=== PATIENT | female | born 1935 | race Caucasian/White ===

== ENCOUNTER 2016-12-26 20:46 | Emergency (ER) | payer OTHER, MEDICAID ==
[2016-12-26 21:08] VITALS: BP 114/53; BMI 26.9
--- NOTE | 2016-12-26 21:55 | RAD ---
Indication: G-tube placement . Exam: KUB Technique: A supine view of the abdomen was obtained after 40 cc of Gastrografin was injected into t he patient's G-tube. Findings: There is a G-tube in place along the distal body of the stomach with contrast outlining th e gastric the colon extending into the proximal duodenum. There is no extravasation seen. The gas pa ttern is unremarkable. Impression: G-tube in good position with a nonspecific gas pattern. Reported By:
--- NOTE | 2016-12-26 21:58 | DR.GENAD ---
HPI - PCP Primary Care Physician: nickie - Complaint/Symptoms Chief Complaint:: pt here because her gtube has been pulled out - Source History Provided: EMS - Mode of Arrival Mode of Arrival: Stretcher - Timing Onset of Chief Complaint: 12/26/16 PMH - PMH Past Medical History: Yes Past Medical History: Alzheimers, Anxiety, CVA, Dementia, Diabetes, Hypertension , Hypothyroidism, Seizures Past Surgical History: Yes Surgical History: Hysterectomy - Family History History of Family Medical Conditions: Yes Family Medical History: Coronary Artery Disease - Social History Alcohol Use: None Do you use any recreational Drugs:: No Lives With: Other Lives Where: Assisted - infectious screening In the last 2 months have you had wt loss of >10#?: NO Have you had fever, night sweats or hemotysis?: No Have you traveled outside the country in the last 6 months?: No Isolation: Standard ROS - Review of Systems Unable to Obtain Due To: Dementia (pt does not open eyes) PE - Vital Signs Vitals: Temperature 97.2 F Pulse Rate 93 Respiratory Rate 20 Blood Pressure [Left Arm] 125/64 Blood Pressure [Right Arm] 131/58 Blood Pressure 114/53 O2 Sat by Pulse Oximetry 97 - Neck Neck Exam: Normal Inspection - Chest Chest Inspection: Normal Inspection - Respiratory Respiratory Exam: Normal Lung Sounds Bilat Respiratory Exam: Bilateral Clear to Auscultation - Cardiovascular Cardiovascular Exam: Regular Rate - Abdominal Exam Abdominal Exam: Normal Inspection, Soft Procedures - Additional Procedures Additional Procedures: gastric tube replacement - Diagnosis Discharge Problem: Attention to G-tube - Discharge Plan Disposition: 03 XFER SNF Condition: Stable - Follow ups/Referrals Follow ups/Referrals: PHAM BUNN [Primary Care Provider] - 3 days - Instructions Instructions: Care of a Feeding Tube, [id number]
== END 2016-12-26 22:02 | disposition home or self-care (01) ==
LOC: ER 20:46
PROC: 0D20XUZ Change Feeding Device in Upper Intestinal Tract, External Approach (ICD-10-PCS; principal; 2016-12-26)
DX: Z43.1 Encounter for attention to gastrostomy (principal)
CPT/HCPCS: 43760; 74000; 99282

== ENCOUNTER 2017-08-12 11:05 | Day surgery (SDC) | payer OTHER, MEDICAID ==
[~2017-08-12 11:05] MED LIST: D5 LR 1000 ML 1,000 ML IV ONE
[2017-08-12] MEDS ORDERED: DIPRIVAN VIAL 20 ML ONE (12:59)
[2017-08-12 14:36] VITALS: BP 121/65
[2017-08-12 16:15] LABS: STOOL FOR WBC NEGATIVE (NEGATIVE)
[2017-08-12 18:44] LABS: CRYPTOSPORIDIUM PARVUM ANTIGEN NEGATIVE (NEGATIVE); GIARDIA LAMBLIA ANTIGEN NEGATIVE (NEGATIVE)
== END 2017-08-12 14:00 | disposition home or self-care (01) ==
LOC: SURG1 11:05
PROVIDERS: ATTEND Internal Medicine
PROC: 0DBL8ZX Excision of Transverse Colon, Via Natural or Artificial Opening Endoscopic, Diagnostic (ICD-10-PCS; principal; 2017-08-12 12:15)
PROC: 0DBK8ZX Excision of Ascending Colon, Via Natural or Artificial Opening Endoscopic, Diagnostic (ICD-10-PCS; principal; 2017-08-12 12:15)
PROC: 0DJD8ZZ Inspection of Lower Intestinal Tract, Via Natural or Artificial Opening Endoscopic (ICD-10-PCS; principal; 2017-08-12 12:15)
DX: R19.7 Diarrhea, unspecified (principal); K64.0 First degree hemorrhoids; K57.30 Diverticulosis of large intestine without perforation or abscess without bleeding; K52.89 Other specified noninfective gastroenteritis and colitis; K63.5 Polyp of colon; D12.2 Benign neoplasm of ascending colon; K63.89 Other specified diseases of intestine
CPT/HCPCS: 82270; 83630; 87045; 87328; 87329; 87336; 87427; 87493; 87899; A4217; J3490; J7120

== ENCOUNTER → 2018-01-06 | Outpatient (CLI) | payer OTHER, MEDICAID ==
--- NOTE | 2018-01-06 14:49 | RAD ---
Indication: Arm pain Exam: Right humerus. Technique: AP and lateral views. Findings: There is a mildly displaced and slightly comminuted spiral fracture along the proximal diap hysis of the humerus . The humeral head remains well placed within the glenoid fossa. The distal shakir jermaine is intact. The bones are osteopenic. . There is a right Port-A-Cath in place. Impression: Mildly displaced and slightly comminuted spiral fracture along the proximal right humerus. Diffuse osteopenia. Reported By:
--- NOTE | 2018-01-06 14:51 | RAD ---
Indication: Shoulder pain Exam: Right shoulder series. Technique: AP and axillary views. Findings: There is a mildly displaced and slightly comminuted spiral fracture along the proximal diap hysis of the humerus extending into the surgical neck region proximally. The AC joint is intact . The bones are osteopenic. The humeral head remains well placed within the glenoid fossa. Impression: Mildly displaced and slightly comminuted spiral fracture of the proximal humerus. Mild hypertrophic changes of the AC joint. Osteopenia. Reported By:
== END | disposition home or self-care (01) ==
LOC: RAD 13:10
PROVIDERS: ATTEND Internal Medicine
DX: R29.898 Other symptoms and signs involving the musculoskeletal system (principal); M85.811 Other specified disorders of bone density and structure, right shoulder; S42.291A Other displaced fracture of upper end of right humerus, initial encounter for closed fracture; X58.XXXA Exposure to other specified factors, initial encounter
CPT/HCPCS: 73030; 73060

== ENCOUNTER 2018-06-05 18:51 | Inpatient (IN) ==
[~2018-06-05 18:51] MED LIST changes: -D5 LR 1000 ML 1,000 ML IV ONE; +TYLENOL SUPP 650 MG ONE
[2018-06-05] MEDS ORDERED: NS 1000 ML 1,000 ML ONE (20:01)
[2018-06-05 20:04] LABS: BILIRUBIN,URINE NEGATIVE (NEGATIVE); BLOOD/HEMOGLOBIN,URINE 4+ (NEGATIVE); GLUCOSE, URINE NEGATIVE (NEGATIVE); KETONES,URINE NEGATIVE (NEGATIVE); LEUKOCYTE ESTERASE ,URINE 3+ (NEGATIVE); NITRITES,URINE NEGATIVE (NEGATIVE); PROTEIN,URINE 3+ (NEGATIVE); UROBILINOGEN,URINE 1+ (NORMAL)
[2018-06-05 20:05] LABS: BASOPHILS % (AUTO) 0.3 % (0.2-1.0); EOSINOPHILS # (AUTO) 0.4 x10^3/uL (0.0-0.2); EOSINOPHILS % (AUTO) 2.5 % (0.9-2.9); HEMATOCRIT 28.7 % (36.0-47.0); HEMOGLOBIN 9.9 g/dL (12.0-16.0); LYMPHOCYTES # (AUTO) 0.2 X10^3/uL (1.3-2.9); LYMPHOCYTES % (AUTO) 1.4 % (21.0-51.0); MEAN CORPUSCULAR HEMOGLOBIN 34.3 pg (27.0-34.0); MEAN CORPUSCULAR HGB CONC 34.4 g/dL (33.0-35.0); MEAN CORPUSCULAR VOLUME 99.6 fL (80.0-100.0); MEAN PLATELET VOLUME 9.3 fL (7.4-11.0); MONOCYTES # (AUTO) 0.5 x10^3/uL (0.3-0.8); MONOCYTES % (AUTO) 2.8 % (0.0-13.0); NEUTROPHILS # (AUTO) 15.6 x10^3/uL (2.2-4.8); PLATELET COUNT 148 X10^3/uL (150.0-450.0); RED BLOOD COUNT 2.88 X10^6/uL (3.5-5.4); RED CELL DISTRIBUTION WIDTH 14.3 % (11.6-16.5); WHITE BLOOD COUNT 16.8 X10^3/uL (3.6-10.0)
[2018-06-05 20:05] LABS: APPEARANCE,URINE CLOUDY (CLEAR); COLOR,URINE STRAW (YELLOW)
[2018-06-05 20:12] LABS: BACTERIA,URINE 3+ /HPF (NEGATIVE); MUCUS,URINE FEW /HPF (NEGATIVE); SQUAMOUS EPITHELIAL CELL,UR MODERATE /HPF (NEGATIVE)
[2018-06-05] MEDS ORDERED: NS 1000 ML 1,000 ML IV ONE (20:12)
[2018-06-05 20:21] LABS: LACTIC ACID 2.6 mmol/L (0.4-2.0)
[2018-06-05 20:23] LABS: CALCIUM 8.3 mg/dL (8.5-10.1); CARBON DIOXIDE 19.6 mmol/L (21-32); CREATININE 3.45 mg/dL (0.55-1.02); TROPONIN I 0.82 ng/mL (0-1.5)
[2018-06-05 20:28] LABS: BAND NEUTROPHILS % 14 % (0-10)
[2018-06-05 20:29] LABS: PLATELET MORPHOLOGY COMMENT NORMAL (NORMAL)
[2018-06-05 20:38] LABS: ALBUMIN 2.3 g/dL (3.4-5.0); CKMB % 1.6 % (<4); COR CA(FOR HYPOALB) 9.7 mg/dL (8.5-10.1); CREATINE KINASE MB 2.2 ng/mL (0-4.0); TOTAL PROTEIN 6.9 g/dL (6.4-8.2)
[2018-06-05] MEDS ORDERED: ROCEPHIN VIAL 1 GRAM ONE (21:25)
--- NOTE | 2018-06-05 21:59 | RAD ---
Chest, one view Indication: Vomiting, fever Comparison: 06/05/2018 Findings: The heart is stable in size. The lungs are again hypoinflated but grossly clear. No signifi cant pleural effusion is identified. Right subclavian port catheter terminates over the cavoatrial ju nction without pneumothorax. Fracture of the proximal right humeral shaft again noted. Impression: No acute cardiopulmonary abnormality or significant interval change. Reported By:
[2018-06-05] MEDS ORDERED: ROCEPHIN VIAL 1 GRAM IVP SCH (22:01)
[2018-06-05] MEDS ORDERED: TOBRAMYCIN SULFATE 80 MG in NS 100 ML IV 100 ML IV SCH (22:01)
[2018-06-05] MEDS ORDERED: NS 1000 ML 1,000 ML IV SCH (22:01)
[2018-06-05] MEDS ORDERED: TOBRAMYCIN SULFATE ONE (22:09)
[2018-06-05] MEDS ORDERED: NS 100 ML IV 100 ML IV ONE (22:10)
[2018-06-05] MEDS: TYLENOL SUPP 650 MG PR PRN (23:08)
[2018-06-05 23:38] VITALS: BMI 33.3
[2018-06-06] MEDS ORDERED: MORPHINE SULFATE INJ 2 MG INJ IVP ONE (02:28)
[2018-06-06] MEDS: BUTT CREAM (COMPOUND) TOP PRN ×2 (02:39→20:30)
--- NOTE | 2018-06-06 03:11 | DR.FEVERAD ---
HPI PCP Primary Care Physician: SEPIDEH Complaints/Symptoms Chief Complaint:: VOMITING AND FEVER PT WAS IN THE HOSPITAL TUESDAY FOR SAME COMPLAINT PT WAS PLACED ON COMFORT MEASURES FAMILY HAS SINCE REVOKED THE COMFORT MEASURES Source History Provided: [facility] Mode of Arrival Mode of Arrival: Stretcher Timing Onset of Chief Complaint: 06/05/18 PMH PMH Past Surgical History: Yes Surgical History: Hysterectomy Family History History of Family Medical Conditions: Yes Family Medical History: Coronary Artery Disease Social History Does any household member use tobacco: No Alcohol Use: None Do you use any recreational Drugs:: No Lives With: Alone Lives Where: [facility] infectious screening In the last 2 months have you had wt loss of >10#?: YES Have you had fever, night sweats or hemotysis?: No Have you traveled outside the country in the last 6 months?: No Isolation: Standard PE Vital Signs Vitals: Temperature 100.6 F Pulse Rate [Left Radial] 113 Pulse Rate 130 Respiratory Rate 26 Blood Pressure [Left Arm] 85/45 Blood Pressure [Right Arm] 131/58 Blood Pressure 125/64 O2 Sat by Pulse Oximetry 96 General Limitations: No Limitations and Language Barrier; negative Altered Mental Status General Appearance: Alert and In No Apparent Distress; negative Appears Intoxicated, Lethargic and Obtunded Head Head Exam: Normal Inspection, Atraumatic and Normocephalic Eyes Eye exam: Normal Appearance, PERRL and EOMI; negative Conjunctival Injection ENT ENT Exam: Normal Exam, Normal Oropharynx and Normal External Ear Exam; negative Mucous Membranes Moist, Mucous Membranes Dry and TM's Normal Bilaterally External Ear Exam: negative Normal External Inspection, Auricular Hematoma, Auricular Trauma, Mastoid Tenderness, Pain with Movement and External Tenderness TM/Canal Exam: Bilateral: Normal Nose Exam: Normal Nose Exam; negative Sinus Tenderness, Nasal Deviation, Crepitus, Septal Hematoma and Laceration Nasal Speculum Exam: Bilateral: Normal Mouth Exam: Normal Inspection Respiratory Respiratory Exam: negative Prolonged Expiratory Phase, Respiratory Distress and Stridor Respiratory Exam: Bilateral: Clear to Auscultation Cardiovascular Cardiovascular Exam: Regular Rate and Normal Rhythm Abdominal Exam Abdominal Exam: Normal Inspection, Normal Bowel Sounds and Soft; negative Distention, Tenderness, Guarding, Hyperactive Bowel Sounds, Trauma, Incision and Ascites Abdominal Tenderness: negative RUQ, RLQ, LUQ, LLQ, Epigastrium and Suprapubic Extremities Extremities Exam: Normal Inspection and Full ROM; negative Tenderness and Edema Back Back Exam: Normal Inspection and Full ROM; negative Tenderness Neurologic Neurological Exam: Alert, Oriented X3, CN II-XII Intact, Normal Gait and Reflexes Normal Psychiatric Psychiatric Exam: Normal Affect Skin Skin Exam: Warm, Dry and Intact; negative Rash, Cyanosis, Diaphoresis and Erythema ROR Labs Reviewed Result Diagrams: 06/05/18 19:46 06/05/18 19:46 Laboratory: WBC 16.8 X10^3/uL (3.6-10.0) H 06/05/18 19:46 RBC 2.88 X10^6/uL (3.5-5.4) L 06/05/18 19:46 Hgb 9.9 g/dL (12.0-16.0) L 06/05/18 19:46 Hct 28.7 % (36.0-47.0) L 06/05/18 19:46 MCV 99.6 fL (80.0-100.0) 06/05/18 19:46 MCH 34.3 pg (27.0-34.0) H 06/05/18 19:46 MCHC 34.4 g/dL (33.0-35.0) 06/05/18 19:46 RDW 14.3 % (11.6-16.5) 06/05/18 19:46 Plt Count 148 X10^3/uL (150.0-450.0) L 06/05/18 19:46 Plt Count Comment Adequate (ADEQUATE) 06/05/18 19:46 MPV 9.3 fL (7.4-11.0) 06/05/18 19:46 Neut % (Auto) 93.0 % (42.0-75.0) H 06/05/18 19:46 Lymph % (Auto) 1.4 % (21.0-51.0) L 06/05/18 19:46 [place] % (Auto) 2.8 % (0.0-13.0) 06/05/18 19:46 Eos % (Auto) 2.5 % (0.9-2.9) 06/05/18 19:46 Baso % (Auto) 0.3 % (0.2-1.0) 06/05/18 19:46 Neut # (Auto) 15.6 x10^3/uL (2.2-4.8) H 06/05/18 19:46 Lymph # (Auto) 0.2 X10^3/uL (1.3-2.9) L 06/05/18 19:46 [place] # (Auto) 0.5 x10^3/uL (0.3-0.8) 06/05/18 19:46 Eos # (Auto) 0.4 x10^3/uL (0.0-0.2) H 06/05/18 19:46 Baso # (Auto) 0.0 X10^3/uL (0.0-0.1) 06/05/18 19:46 Absolute Nucleated RBC 0.0 /100WBC 06/05/18 19:46 Total Counted 100 06/05/18 19:46 Neutrophils % (Manual) 78 % (39-76) H 06/05/18 19:46 Band Neutrophils % 14 % (0-10) H 06/05/18 19:46 Lymphocytes % (Manual) 4 % (13-43) L 06/05/18 19:46 Monocytes % (Manual) 4 % (4-9) 06/05/18 19:46 Plt Morphology Comment Normal (NORMAL) 06/05/18 19:46 RBC Morphology Normal (NORMAL) 06/05/18 19:46 Sodium 132 mmol/L (136-145) L 06/05/18 19:46 Corrected Sodium 133 mmol/L (136-145) L 06/05/18 19:46 Potassium 4.9 mmol/L (3.5-5.1) 06/05/18 19:46 Chloride 99 mmol/L (98-107) 06/05/18 19:46 Carbon Dioxide 19.6 mmol/L (21-32) L 06/05/18 19:46 BUN 89 mg/dL (7-18) H 06/05/18 19:46 Creatinine 3.45 mg/dL (0.55-1.02) H 06/05/18 19:46 Est GFR (MDRD) Af Amer 16 (>60) L 06/05/18 19:46 Est GFR (MDRD) Non-Af 14 (>60) L 06/05/18 19:46 Glucose 126 mg/dL (65-99) H 06/05/18 19:46 Lactic Acid 2.6 mmol/L (0.4-2.0) H 06/05/18 19:46 Calcium 8.3 mg/dL (8.5-10.1) L 06/05/18 19:46 Corrected Calcium 9.7 mg/dL (8.5-10.1) 06/05/18 19:46 Total Bilirubin 0.80 mg/dL (0.2-1.0) 06/05/18 19:46 AST 68 Units/L (15-37) H 06/05/18 19:46 ALT 38 Units/L (12-78) 06/05/18 19:46 Alkaline Phosphatase 244 Units/L (46-116) H 06/05/18 19:46 Creatine Kinase 141 Units/L (26-192) 06/05/18 19:46 CK-MB (CK-2) 2.2 ng/mL (0-4.0) 06/05/18 19:46 CK/CKMB % Calc 1.6 % (<4) 06/05/18 19:46 Troponin I 0.82 ng/mL (0-1.5) 06/05/18 19:46 C-Reactive Protein 284.20 mg/L (0-3.0) H 06/05/18 19:46 B-Natriuretic Peptide 795 pg/mL (0-79) H* 06/05/18 19:46 Total Protein 6.9 g/dL (6.4-8.2) 06/05/18 19:46 Albumin 2.3 g/dL (3.4-5.0) L 06/05/18 19:46 Globulin 4.6 g/dL (2.5-4.5) H 06/05/18 19:46 Albumin/Globulin Ratio 0.5 Ratio (1.1-2.1) L 06/05/18 19:46 Specimen Type Catherized urine 06/05/18 19:39 Urine Color Straw (YELLOW) 06/05/18 19:39 Urine Appearance Cloudy (CLEAR) 06/05/18 19:39 Urine pH 7.0 (5.0 - 8.0) 06/05/18 19:39 Ur Specific [place] 1.010 (1.000-1.030) 06/05/18 19:39 Urine Protein 3+ (NEGATIVE) 06/05/18 19:39 Urine Glucose (UA) Negative (NEGATIVE) 06/05/18 19:39 Urine Ketones Negative (NEGATIVE) 06/05/18 19:39 Urine Occult Blood 4+ (NEGATIVE) 06/05/18 19:39 Urine Nitrite Negative (NEGATIVE) 06/05/18 19:39 Urine Bilirubin Negative (NEGATIVE) 06/05/18 19:39 Urine Urobilinogen 1+ (NORMAL) 06/05/18 19:39 Ur Leukocyte Esterase 3+ (NEGATIVE) 06/05/18 19:39 Urine RBC 5-10 /HPF (NONE SEEN) 06/05/18 19:39 Urine WBC Tntc /HPF (NONE SEEN) 06/05/18 19:39 Ur Squamous Epith Cells Moderate /HPF (NEGATIVE) 06/05/18 19:39 Urine Bacteria 3+ /HPF (NEGATIVE) 06/05/18 19:39 Urine Mucus Few /HPF (NEGATIVE) 06/05/18 19:39 Ur Culture Indicated? Yes/culture set up 06/05/18 19:39
[2018-06-06 03:32] LABS: BILIRUBIN,URINE NEGATIVE (NEGATIVE); BLOOD/HEMOGLOBIN,URINE 4+ (NEGATIVE); GLUCOSE, URINE NEGATIVE (NEGATIVE); KETONES,URINE NEGATIVE (NEGATIVE); LEUKOCYTE ESTERASE ,URINE 3+ (NEGATIVE); NITRITES,URINE NEGATIVE (NEGATIVE); PROTEIN,URINE 3+ (NEGATIVE); UROBILINOGEN,URINE 1+ (NORMAL)
[2018-06-06 03:54] LABS: AMORPHOUS SEDIMENT,UR 1+ /HPF (NEGATIVE); APPEARANCE,URINE CLOUDY (CLEAR); BACTERIA,URINE TRACE /HPF (NEGATIVE); COLOR,URINE YELLOW (YELLOW); RBC,URINE 30-50 /HPF (NONE SEEN); SQUAMOUS EPITHELIAL CELL,UR FEW /HPF (NEGATIVE)
[2018-06-06] MEDS: TYLENOL SUPP 650 MG PR PRN ×2 (04:27→20:33)
[2018-06-06 05:14] LABS: BASOPHILS % (AUTO) 0.1 % (0.2-1.0); EOSINOPHILS # (AUTO) 0.4 x10^3/uL (0.0-0.2); EOSINOPHILS % (AUTO) 3.1 % (0.9-2.9); HEMATOCRIT 24.6 % (36.0-47.0); HEMOGLOBIN 8.6 g/dL (12.0-16.0); LYMPHOCYTES # (AUTO) 0.2 X10^3/uL (1.3-2.9); LYMPHOCYTES % (AUTO) 1.8 % (21.0-51.0); MEAN CORPUSCULAR HEMOGLOBIN 34.7 pg (27.0-34.0); MEAN CORPUSCULAR VOLUME 99.3 fL (80.0-100.0); MEAN PLATELET VOLUME 9.5 fL (7.4-11.0); MONOCYTES # (AUTO) 0.1 x10^3/uL (0.3-0.8); NEUTROPHILS # (AUTO) 10.8 x10^3/uL (2.2-4.8); PLATELET COUNT 122 X10^3/uL (150.0-450.0); RED BLOOD COUNT 2.47 X10^6/uL (3.5-5.4); RED CELL DISTRIBUTION WIDTH 13.9 % (11.6-16.5); WHITE BLOOD COUNT 11.5 X10^3/uL (3.6-10.0)
[2018-06-06 05:31] LABS: ALANINE AMINOTRANSFERASE 34 Units/L (12-78); ALKALINE PHOSPHATASE 207 Units/L (46-116); ASPARTATE AMINO TRANSFERASE 51 Units/L (15-37); BLOOD UREA NITROGEN 85 mg/dL (7-18); CALCIUM 7.7 mg/dL (8.5-10.1); CARBON DIOXIDE 19.1 mmol/L (21-32); CHLORIDE 103 mmol/L (98-107); COR CA(FOR HYPOALB) 9.3 mg/dL (8.5-10.1); CREATININE 3.25 mg/dL (0.55-1.02); SODIUM 135 mmol/L (136-145); eGFR NON BLACK RACES 15 (>60)
[2018-06-06 06:04] LABS: BAND NEUTROPHILS % 23 % (0-10)
[2018-06-06 06:05] LABS: PLATELET MORPHOLOGY COMMENT NORMAL (NORMAL)
--- NOTE | 2018-06-06 07:03 | RAD ---
HISTORY: Fever, shortness of breath Study: Chest AP portable Comparison: 06/05/2018 Findings: There is a port present on the right. The patient is rotated to the left. The heart is within normal limits in size. The ashlyn are normal. The lungs are hypo inflated but clear. Right proximal humeral sh aft fracture again identified. IMPRESSION: Lungs hypo inflated but clear Reported By:
[2018-06-06] MEDS ORDERED: NS 500 ML IV 500 ML IV ONE (07:54)
[2018-06-06] MEDS ORDERED: NS 1000 ML 1,000 ML IV ONE ×2 (13:26→19:00)
--- NOTE | 2018-06-06 13:39 | DR.H&P ---
H&P - History & Physical for Day of: H&P Date: 06/05/18 - Chief Complaint Chief Complaint: fever, ams, UTI - History of Present Illness History of Present Illness: 82 WF ER ADMISSION, PT RESIDENT OF [facility] SENT TO ER FOR CO OF FEVER, INCREASED LETHARGY, CHEST CONGESTION, SUSPECTED POSSIBLE ASPIRATION AFTER VOMITING EPISODE OCCURRED ON TUESDAY. PT HAD ELEVATED WBC 16.8, FEBRILE. PT WAS HYPOTENSIVE WITH ELEVATED BUN, CREAT. PT ADMITTED FOR TREATMENT AND EVALUATION OF POSSIBLE SEPSIS. BLOOD CULTURES COLLECTED ON ADMISSION, GENTLE HYDRATION, IV ATBX, RESP THERAPY - Past Medical History Past Medical History: Alzheimers, Anxiety, CHF, CVA, Dementia, Diabetes, Hypertension, Hypothyroidism, Seizures - Past Surgical History Surgical History: Hysterectomy - Family History Family Medical History: Coronary Artery Disease - Social History Does patient currently use any type of tobacco product: No Have you used tobacco products in the last 12 months: No Type of Tobacco Use: None Does any household member use tobacco: No Alcohol Use: None Drug Use: None - Medications Home Medications: No Known Drug Allergies Allergy (Verified 01/12/18 10:23) CONTINUE taking the following medications morphine concentrate 0.25 ml SUBLINGUAL Q2H PRN 06/05/18 [History] phenytoin [Dilantin-125] 6 ml G-TUBE BID 06/05/18 [History] - Review of Systems Constitutional: Fever, Weakness Eyes: Redness. denies: Vision Change ENT: denies: Ear Discharge, Nose Discharge, Mouth Swelling Respiratory: Wheezing Cardiovascular: No Symptoms Reported. denies: Edema Gastrointestinal: Vomiting Genitourinary: Incontinence Musculoskeletal: No Symptoms Reported Skin: Wound Neurological: Weakness - Physical Exam Vital Signs: Temperature 100.4 F Pulse Rate [Left Radial] 102 Pulse Rate 130 Respiratory Rate 24 Blood Pressure [Left Arm] 82/45 Blood Pressure [Right Arm] 131/58 Blood Pressure 125/64 O2 Sat by Pulse Oximetry 96 Oriented: Unable to test (NO VERBAL RESPONSES) Eyes: Redness (MILD REDNESS TO BILATERAL CONJUCTIVA) Throat: Dry Respiratory: Diminished Throughout Cardiovascular: Normal. negative: Murmur, Edema Auscultation: Bowel Sounds: Normal Palpation: Normal Tenderness: Normal, Other (PEG TUBE PRESENT) Skin: Decreased Turgur, Wound (CHRONIC BILATERAL FEET WOUNDS ) Musculoskeletal: Right, Left, Arm, Leg, Deformity, Motor Deficit, Sensory Deficit Mood Description: Calm Affect: Flat Speech Pattern: Aphasic - Assessment/Plan (1) UTI (urinary tract infection) Status: Acute Plan: ACUTE ON CHRONIC RENAL FAILURE. ADMIT, BLOOD AND URINE CULTURE ON ADMISSION, YI CATH WITH STRICT I & OS, BP MONITORING, RESP CONSULT. CXR ON ADMISSION IN ER AND REPEAT Q AM. VERIFY HOME MEDICATION, IV ROCEPHIN AND TOBRAMYCIN. FEVER CONTROL, COMFORT CARE (2) Fever Status: Acute (3) Cough Status: Acute (4) Alzheimers disease Status: Chronic (5) Dementia Status: Chronic (6) Diabetes mellitus Status: Chronic (7) Hypertension Status: Chronic (8) Hypothyroidism Status: Chronic (9) Acute renal failure Status: Acute - Allergies Allergies/Adverse Reactions: Allergies Allergy/AdvReac Type Severity Reaction Status Date / Time No Known Drug Allergies Allergy Verified 01/12/18 10:23
[2018-06-06] MEDS: MORPHINE SULFATE INJ 2 MG INJ IVP PRN (14:38)
[2018-06-06] MEDS: NS 1000 ML 1,000 ML IV SCH ×2 (14:44→18:43)
[2018-06-06] MEDS: LEVOPHED INJ 8 MG in D5W 250 ML IV 242 ML IV PRN (14:44)
[2018-06-06 16:00] LABS: TROPONIN I 0.66 ng/mL (0-1.5)
[2018-06-06 16:28] LABS: BLOOD UREA NITROGEN 83 mg/dL (7-18); CARBON DIOXIDE 21.4 mmol/L (21-32); CHLORIDE 106 mmol/L (98-107); CREATININE 3.24 mg/dL (0.55-1.02); SODIUM 137 mmol/L (136-145); eGFR NON BLACK RACES 15 (>60)
--- NOTE | 2018-06-06 16:52 | RAD ---
Chest, one view Indication: Fever, shortness of breath Comparison: Radiograph from earlier this morning Findings: Cardiac silhouette is unchanged. There is developing left basilar airspace disease obscurin g the left hemidiaphragm and blunting the costophrenic sulcus. The lungs are otherwise grossly clear. Stable right subclavian approach Port-A-Cath noted. Impression: Developing left basilar infiltrate versus atelectasis. Small effusion is possible. Reported By:
--- NOTE | 2018-06-06 17:38 | PCM.PROG ---
Progress Note - Progress Note for Day of Date of Exam: 06/06/18 - Subjective Subjective: 82 WF ER ADMISSION ON 06/05 WITH FEVER, UTI, INCREASE LETHARGY AND SUSPECTED ASPIRATION AFTER PROFUSE VOMITING ON TUESDAY, THEN ONSET OF CHEST CONGESTION AND WHEEZING. PT FAMILY REVOKED COMFORT MEASURES BUT CURRENTLY WANTS PT TO RECEIVE TREATMENT FOR ACUTE INFECTION, HYPOTENSION. UC COLLECTED ON ADMISSION +GRAM NEG RODS, PT CURRENTLY ON IV ROCEPHIN AND TOBRAMYCIN. PT CONTINUES WITH HYPOTENSION THIS AM, IV NS BOLUS GIVEN, SLIGHT IMPROVEMENT IN BUN 85 CREAT 3,25 THIS AM. CXR WITH L LUNG INFILTRATE. PT MOVED TO ICU, INITIATED LEVOPHED DRIP PER PROTOCOL WITH CONTINUOUS BP AND CARDIAC MONITORING. HOLDING PT ANTIHYPERTENSIVE DUE TO HYPOTENSION. WILL REPEAT CMP THIS AFTERNOON, CONTINUE WITH IV ABTX, REPEAT AM LABS AND CXR, SUPPORTIVE CARE, SUPPLEMENTAL O2, JET NEBS - Past Medical Family Social History Past Med/Fam/Surg Hx: No changes since H&P Allergies: Allergies No Known Drug Allergies Allergy (Verified 01/12/18 10:23) - Review of Systems ROS: No change since H&P - Vital Signs and I&O's Vital Signs: Temperature 99.0 F Pulse Rate [Left Radial] 123 Pulse Rate 130 Respiratory Rate 44 Blood Pressure [Left Arm] 105/52 Blood Pressure [Right Arm] 131/58 Blood Pressure 125/64 O2 Sat by Pulse Oximetry 100 Intake and Output: Intake & Output 06/04/18 06/05/18 06/06/18 06/07/18 11:59 11:59 11:59 11:59 Intake Total 1100 / 1100 1850 / 1850 Output Total 125 / 125 210 / 210 Balance 975 / 975 1640 / 1640 - Physical Exam Oriented: Unable to test (NO VERBAL RESPONSES) Eyes: Redness (MILD REDNESS TO BILATERAL CONJUCTIVA) Throat: Dry Respiratory: Diminished, Rhonchi Cardiovascular: Normal. negative: Murmur, Edema Auscultation: Bowel Sounds: Normal Tenderness: Normal, Other (PEG TUBE PRESENT) Skin: Decreased Turgur, Wound (CHRONIC BILATERAL FEET WOUNDS ) Musculoskeletal: Right, Left, Arm, Leg, Deformity, Motor Deficit, Sensory Deficit Mood Description: Calm Affect: Flat Speech Pattern: Aphasic - Laboratory and Diagnostics Result Diagrams: 06/06/18 04:17 06/06/18 15:36 Labs: 06/05/18 19:39 Urine,Catheterized Urine Culture - Preliminary Laboratory WBC 11.5 X10^3/uL (3.6-10.0) H 06/06/18 04:17 RBC 2.47 X10^6/uL (3.5-5.4) L 06/06/18 04:17 Hgb 8.6 g/dL (12.0-16.0) L 06/06/18 04:17 Hct 24.6 % (36.0-47.0) L 06/06/18 04:17 MCV 99.3 fL (80.0-100.0) 06/06/18 04:17 MCH 34.7 pg (27.0-34.0) H 06/06/18 04:17 MCHC 35.0 g/dL (33.0-35.0) 06/06/18 04:17 RDW 13.9 % (11.6-16.5) 06/06/18 04:17 Plt Count 122 X10^3/uL (150.0-450.0) L 06/06/18 04:17 Plt Count Comment Adequate (ADEQUATE) 06/06/18 04:17 MPV 9.5 fL (7.4-11.0) 06/06/18 04:17 Neut % (Auto) 94.0 % (42.0-75.0) H 06/06/18 04:17 Lymph % (Auto) 1.8 % (21.0-51.0) L 06/06/18 04:17 [place] % (Auto) 1.0 % (0.0-13.0) 06/06/18 04:17 Eos % (Auto) 3.1 % (0.9-2.9) H 06/06/18 04:17 Baso % (Auto) 0.1 % (0.2-1.0) L 06/06/18 04:17 Neut # (Auto) 10.8 x10^3/uL (2.2-4.8) H 06/06/18 04:17 Lymph # (Auto) 0.2 X10^3/uL (1.3-2.9) L 06/06/18 04:17 [place] # (Auto) 0.1 x10^3/uL (0.3-0.8) L 06/06/18 04:17 Eos # (Auto) 0.4 x10^3/uL (0.0-0.2) H 06/06/18 04:17 Baso # (Auto) 0.0 X10^3/uL (0.0-0.1) 06/06/18 04:17 Absolute Nucleated RBC 0.0 /100WBC 06/06/18 04:17 Total Counted 100 06/06/18 04:17 Neutrophils % (Manual) 72 % (39-76) 06/06/18 04:17 Band Neutrophils % 23 % (0-10) H 06/06/18 04:17 Lymphocytes % (Manual) 3 % (13-43) L 06/06/18 04:17 Monocytes % (Manual) 1 % (4-9) L 06/06/18 04:17 Plt Morphology Comment Normal (NORMAL) 06/06/18 04:17 RBC Morphology Normal (NORMAL) 06/06/18 04:17 Sodium 137 mmol/L (136-145) 06/06/18 15:36 Corrected Sodium TNP 06/06/18 15:36 Potassium 4.6 mmol/L (3.5-5.1) 06/06/18 15:36 Chloride 106 mmol/L (98-107) 06/06/18 15:36 Carbon Dioxide 21.4 mmol/L (21-32) 06/06/18 15:36 BUN 83 mg/dL (7-18) H 06/06/18 15:36 Creatinine 3.24 mg/dL (0.55-1.02) H 06/06/18 15:36 Est GFR (MDRD) Af Amer 18 (>60) L 06/06/18 15:36 Est GFR (MDRD) Non-Af 15 (>60) L 06/06/18 15:36 Glucose 98 mg/dL (65-99) 06/06/18 15:36 POC Glucose (mg/dL) 98 mg/dL (65-99) 06/06/18 12:08 Lactic Acid 2.6 mmol/L (0.4-2.0) H 06/05/18 19:46 Calcium 8.0 mg/dL (8.5-10.1) L 06/06/18 15:36 Corrected Calcium 9.3 mg/dL (8.5-10.1) 06/06/18 04:17 Total Bilirubin 0.60 mg/dL (0.2-1.0) 06/06/18 04:17 AST 51 Units/L (15-37) H 06/06/18 04:17 ALT 34 Units/L (12-78) 06/06/18 04:17 Alkaline Phosphatase 207 Units/L (46-116) H 06/06/18 04:17 Creatine Kinase 141 Units/L (26-192) 06/05/18 19:46 CK-MB (CK-2) 2.2 ng/mL (0-4.0) 06/05/18 19:46 CK/CKMB % Calc 1.6 % (<4) 06/05/18 19:46 Troponin I 0.66 ng/mL (0-1.5) 06/06/18 15:36 C-Reactive Protein 284.20 mg/L (0-3.0) H 06/05/18 19:46 B-Natriuretic Peptide 1090 pg/mL (0-79) H* 06/06/18 15:36 Total Protein 6.0 g/dL (6.4-8.2) L 06/06/18 04:17 Albumin 2.0 g/dL (3.4-5.0) L 06/06/18 04:17 Globulin 4.0 g/dL (2.5-4.5) 06/06/18 04:17 Albumin/Globulin Ratio 0.5 Ratio (1.1-2.1) L 06/06/18 04:17 Specimen Type Catherized urine 06/06/18 02:57 Urine Color Yellow (YELLOW) 06/06/18 02:57 Urine Appearance Cloudy (CLEAR) 06/06/18 02:57 Urine pH 7.0 (5.0 - 8.0) 06/06/18 02:57 Ur Specific [place] 1.005 (1.000-1.030) 06/06/18 02:57 Urine Protein 3+ (NEGATIVE) 06/06/18 02:57 Urine Glucose (UA) Negative (NEGATIVE) 06/06/18 02:57 Urine Ketones Negative (NEGATIVE) 06/06/18 02:57 Urine Occult Blood 4+ (NEGATIVE) 06/06/18 02:57 Urine Nitrite Negative (NEGATIVE) 06/06/18 02:57 Urine Bilirubin Negative (NEGATIVE) 06/06/18 02:57 Urine Urobilinogen 1+ (NORMAL) 06/06/18 02:57 Ur Leukocyte Esterase 3+ (NEGATIVE) 06/06/18 02:57 Urine RBC 30-50 /HPF (NONE SEEN) 06/06/18 02:57 Urine WBC 30-50 /HPF (NONE SEEN) 06/06/18 02:57 Ur Squamous Epith Cells Few /HPF (NEGATIVE) 06/06/18 02:57 Amorphous Sediment 1+ /HPF (NEGATIVE) 06/06/18 02:57 Urine Bacteria Trace /HPF (NEGATIVE) 06/06/18 02:57 Urine Mucus Few /HPF (NEGATIVE) 06/05/18 19:39 Ur Culture Indicated? Yes/culture set up 06/06/18 02:57 - Plan (1) UTI (urinary tract infection) Status: Acute Plan: ACUTE ON CHRONIC RENAL FAILURE. BLOOD AND URINE CULTURE ON ADMISSION, YI CATH WITH STRICT I & OS, BP MONITORING, RESP CONSULT. CXR ON ADMISSION IN ER AND REPEAT Q AM. VERIFY HOME MEDICATION, IV ROCEPHIN AND TOBRAMYCIN. FEVER CONTROL, COMFORT CARE (2) Pneumonia Status: Acute Plan: RESP THERAPY, SUPPLEMENTAL O2. IV ATBX, JET NEBS. AM CXR (3) Fever Status: Acute (4) Cough Status: Acute (5) Alzheimers disease Status: Chronic (6) Dementia Status: Chronic (7) Diabetes mellitus Status: Chronic (8) Hypertension Status: Chronic (9) Hypothyroidism Status: Chronic (10) Acute renal failure Status: Acute
[2018-06-06] MEDS ORDERED: NS 100 ML IV + SPIKE MINIBAG* 0 ML IV ONE (20:05)
[2018-06-06] MEDS: ROCEPHIN VIAL 1 GRAM IVP SCH (20:18)
[2018-06-06] MEDS: XOPENEX 1.25 MG/3 ML NEBULE NEB SCH (20:32)
[2018-06-06] MEDS ORDERED: ROCEPHIN 1 GRAM IV PREMIX 1 G/50 ML IV.SOLN. IV SCH (21:00)
[2018-06-07] MEDS: MORPHINE SULFATE INJ 2 MG INJ IVP PRN (01:14)
[2018-06-07] MEDS: TYLENOL SUPP 650 MG PR PRN (01:33)
[2018-06-07] MEDS: XOPENEX 1.25 MG/3 ML NEBULE NEB SCH (05:12)
[2018-06-07 05:24] LABS: BASOPHILS # (AUTO) 0.1 X10^3/uL (0.0-0.1); BASOPHILS % (AUTO) 0.3 % (0.2-1.0); EOSINOPHILS # (AUTO) 0.3 x10^3/uL (0.0-0.2); EOSINOPHILS % (AUTO) 1.6 % (0.9-2.9); HEMATOCRIT 24.1 % (36.0-47.0); HEMOGLOBIN 8.3 g/dL (12.0-16.0); LYMPHOCYTES # (AUTO) 0.9 X10^3/uL (1.3-2.9); MEAN CORPUSCULAR HEMOGLOBIN 34.8 pg (27.0-34.0); MEAN CORPUSCULAR HGB CONC 34.6 g/dL (33.0-35.0); MEAN CORPUSCULAR VOLUME 100.4 fL (80.0-100.0); MEAN PLATELET VOLUME 9.3 fL (7.4-11.0); MONOCYTES # (AUTO) 0.7 x10^3/uL (0.3-0.8); MONOCYTES % (AUTO) 3.1 % (0.0-13.0); NEUTROPHILS # (AUTO) 20.3 x10^3/uL (2.2-4.8); PLATELET COUNT 139 X10^3/uL (150.0-450.0); RED CELL DISTRIBUTION WIDTH 14.2 % (11.6-16.5)
[2018-06-07 05:45] LABS: ALANINE AMINOTRANSFERASE 30 Units/L (12-78); ALBUMIN 1.8 g/dL (3.4-5.0); ALKALINE PHOSPHATASE 158 Units/L (46-116); ASPARTATE AMINO TRANSFERASE 41 Units/L (15-37); BLOOD UREA NITROGEN 78 mg/dL (7-18); CALCIUM 7.8 mg/dL (8.5-10.1); CARBON DIOXIDE 19.8 mmol/L (21-32); CHLORIDE 109 mmol/L (98-107); COR CA(FOR HYPOALB) 9.6 mg/dL (8.5-10.1); CREATININE 3.13 mg/dL (0.55-1.02); SODIUM 141 mmol/L (136-145); TOTAL PROTEIN 5.8 g/dL (6.4-8.2); eGFR NON BLACK RACES 15 (>60)
[2018-06-07 06:10] LABS: BAND NEUTROPHILS % 16 % (0-10); PLATELET MORPHOLOGY COMMENT NORMAL (NORMAL)
[2018-06-07 06:13] LABS: WHITE BLOOD COUNT 22.3 X10^3/uL (3.6-10.0)
[2018-06-07] MEDS: NS 1000 ML 1,000 ML IV SCH (07:34)
[2018-06-07] MEDS ORDERED: TOBRAMYCIN SULFATE 120 MG in NS 100 ML IV 100 ML IV SCH (09:00)
[2018-06-07] MEDS: LEVOPHED INJ 8 MG in D5W 250 ML IV 242 ML IV PRN (09:16)
--- NOTE | 2018-06-07 13:54 | PCM.PROG ---
Progress Note - Progress Note for Day of Date of Exam: 06/07/18 - Subjective Subjective: 82 WF ER ADMISSION ON 06/05 WITH FEVER, UTI, INCREASE LETHARGY AND SUSPECTED ASPIRATION AFTER PROFUSE VOMITING ON TUESDAY, THEN ONSET OF CHEST CONGESTION AND WHEEZING. PT FAMILY REVOKED COMFORT MEASURES BUT CURRENTLY WANTS PT TO RECEIVE TREATMENT FOR ACUTE INFECTION, HYPOTENSION. UC COLLECTED ON ADMISSION +GRAM NEG RODS, PT CURRENTLY ON IV ROCEPHIN AND TOBRAMYCIN. PT CONTINUES WITH HYPOTENSION THIS AM, 97/53 HAS LEVOPHED TITRATION ORDERED, FAMILY REFUSED ADMINISTRATION YESTERDAY AFTERNOON AND THROUGH THE NIGHT, REQUESTING LEVOPHED TO BE RESUMED THIS AM. PT HAS WB 22.3 HGB 8.3 BUN 78 CREAT 3.13. REVIEWED LABS AND CXR WITH PT'S SON AND DAUGHTER, FAMILY CONTINUES TO WANT HER "COMFORTABLE" ASKING TO CONTINUE WITH MORPHINE PRN. DNR CONTINUED. - Past Medical Family Social History Past Med/Fam/Surg Hx: No changes since H&P Allergies: Allergies No Known Drug Allergies Allergy (Verified 01/12/18 10:23) - Review of Systems ROS: No change since H&P - Vital Signs and I&O's Vital Signs: Temperature 98.1 F Pulse Rate [Left Radial] 103 Pulse Rate 104 Respiratory Rate 24 Blood Pressure [Left Arm] 97/52 Blood Pressure [Right Arm] 131/58 Blood Pressure 125/64 O2 Sat by Pulse Oximetry 100 Intake and Output: Intake & Output 06/05/18 06/06/18 06/07/18 06/08/18 11:59 11:59 11:59 11:59 Intake Total 1100 / 1100 2880.00 / 2880.00 Output Total 125 / 125 810 / 810 Balance 975 / 975 2069.00 / 2069.00 - Physical Exam Oriented: Unable to test (NO VERBAL RESPONSES) Eyes: Redness (MILD REDNESS TO BILATERAL CONJUCTIVA) Ear: Normal Throat: Dry Respiratory: Diminished, Rhonchi Cardiovascular: Normal. negative: Murmur, Edema Auscultation: Bowel Sounds: Normal Tenderness: Normal, Other (PEG TUBE PRESENT) Skin: Decreased Turgur, Wound (CHRONIC BILATERAL HEEL WOUNDS) Musculoskeletal: Right, Left, Arm, Leg, Deformity, Motor Deficit, Sensory Deficit Mood Description: Calm Affect: Flat Speech Pattern: Aphasic - Laboratory and Diagnostics Result Diagrams: 06/07/18 04:50 10/10/18 04:50 Labs: 06/05/18 19:52 Blood Blood Culture - Preliminary 06/05/18 19:46 Blood Blood Culture - Preliminary 06/06/18 02:55 Urine,Catheterized Urine Culture - Preliminary 06/05/18 19:39 Urine,Catheterized Urine Culture - Preliminary Laboratory WBC 22.3 X10^3/uL (3.6-10.0) H D 06/07/18 04:50 RBC 2.40 X10^6/uL (3.5-5.4) L 06/07/18 04:50 Hgb 8.3 g/dL (12.0-16.0) L 06/07/18 04:50 Hct 24.1 % (36.0-47.0) L 06/07/18 04:50 MCV 100.4 fL (80.0-100.0) H 06/07/18 04:50 MCH 34.8 pg (27.0-34.0) H 06/07/18 04:50 MCHC 34.6 g/dL (33.0-35.0) 06/07/18 04:50 RDW 14.2 % (11.6-16.5) 06/07/18 04:50 Plt Count 139 X10^3/uL (150.0-450.0) L 06/07/18 04:50 Plt Count Comment Adequate (ADEQUATE) 06/07/18 04:50 MPV 9.3 fL (7.4-11.0) 06/07/18 04:50 Neut % (Auto) 91.0 % (42.0-75.0) H 06/07/18 04:50 Lymph % (Auto) 4.0 % (21.0-51.0) L 06/07/18 04:50 [place] % (Auto) 3.1 % (0.0-13.0) 06/07/18 04:50 Eos % (Auto) 1.6 % (0.9-2.9) 06/07/18 04:50 Baso % (Auto) 0.3 % (0.2-1.0) 06/07/18 04:50 Neut # (Auto) 20.3 x10^3/uL (2.2-4.8) H 06/07/18 04:50 Lymph # (Auto) 0.9 X10^3/uL (1.3-2.9) L 06/07/18 04:50 [place] # (Auto) 0.7 x10^3/uL (0.3-0.8) 06/07/18 04:50 Eos # (Auto) 0.3 x10^3/uL (0.0-0.2) H 06/07/18 04:50 Baso # (Auto) 0.1 X10^3/uL (0.0-0.1) 06/07/18 04:50 Absolute Nucleated RBC 0.0 /100WBC 06/07/18 04:50 Total Counted 100 06/07/18 04:50 Neutrophils % (Manual) 74 % (39-76) 06/07/18 04:50 Band Neutrophils % 16 % (0-10) H 06/07/18 04:50 Lymphocytes % (Manual) 6 % (13-43) L 06/07/18 04:50 Monocytes % (Manual) 4 % (4-9) 06/07/18 04:50 Plt Morphology Comment Normal (NORMAL) 06/07/18 04:50 RBC Morphology Normal (NORMAL) 06/07/18 04:50 Sodium 141 mmol/L (136-145) 06/07/18 04:50 Corrected Sodium TNP 06/07/18 04:50 Potassium 4.3 mmol/L (3.5-5.1) 06/07/18 04:50 Chloride 109 mmol/L (98-107) H 06/07/18 04:50 Carbon Dioxide 19.8 mmol/L (21-32) L 06/07/18 04:50 BUN 78 mg/dL (7-18) H 06/07/18 04:50 Creatinine 3.13 mg/dL (0.55-1.02) H 06/07/18 04:50 Est GFR (MDRD) Af Amer 18 (>60) L 06/07/18 04:50 Est GFR (MDRD) Non-Af 15 (>60) L 06/07/18 04:50 Glucose 109 mg/dL (65-99) H 06/07/18 04:50 POC Glucose (mg/dL) 98 mg/dL (65-99) 06/06/18 12:08 Lactic Acid 2.6 mmol/L (0.4-2.0) H 06/05/18 19:46 Calcium 7.8 mg/dL (8.5-10.1) L 06/07/18 04:50 Corrected Calcium 9.6 mg/dL (8.5-10.1) 06/07/18 04:50 Total Bilirubin 0.80 mg/dL (0.2-1.0) 06/07/18 04:50 AST 41 Units/L (15-37) H 06/07/18 04:50 ALT 30 Units/L (12-78) 06/07/18 04:50 Alkaline Phosphatase 158 Units/L (46-116) H 06/07/18 04:50 Creatine Kinase 141 Units/L (26-192) 06/05/18 19:46 CK-MB (CK-2) 2.2 ng/mL (0-4.0) 06/05/18 19:46 CK/CKMB % Calc 1.6 % (<4) 06/05/18 19:46 Troponin I 0.66 ng/mL (0-1.5) 06/06/18 15:36 C-Reactive Protein 284.20 mg/L (0-3.0) H 06/05/18 19:46 B-Natriuretic Peptide 1090 pg/mL (0-79) H* 06/06/18 15:36 Total Protein 5.8 g/dL (6.4-8.2) L 06/07/18 04:50 Albumin 1.8 g/dL (3.4-5.0) L 06/07/18 04:50 Globulin 4.0 g/dL (2.5-4.5) 06/07/18 04:50 Albumin/Globulin Ratio 0.5 Ratio (1.1-2.1) L 06/07/18 04:50 Specimen Type Catherized urine 06/06/18 02:57 Urine Color Yellow (YELLOW) 06/06/18 02:57 Urine Appearance Cloudy (CLEAR) 06/06/18 02:57 Urine pH 7.0 (5.0 - 8.0) 06/06/18 02:57 Ur Specific [place] 1.005 (1.000-1.030) 06/06/18 02:57 Urine Protein 3+ (NEGATIVE) 06/06/18 02:57 Urine Glucose (UA) Negative (NEGATIVE) 06/06/18 02:57 Urine Ketones Negative (NEGATIVE) 06/06/18 02:57 Urine Occult Blood 4+ (NEGATIVE) 06/06/18 02:57 Urine Nitrite Negative (NEGATIVE) 06/06/18 02:57 Urine Bilirubin Negative (NEGATIVE) 06/06/18 02:57 Urine Urobilinogen 1+ (NORMAL) 06/06/18 02:57 Ur Leukocyte Esterase 3+ (NEGATIVE) 06/06/18 02:57 Urine RBC 30-50 /HPF (NONE SEEN) 06/06/18 02:57 Urine WBC 30-50 /HPF (NONE SEEN) 06/06/18 02:57 Ur Squamous Epith Cells Few /HPF (NEGATIVE) 06/06/18 02:57 Amorphous Sediment 1+ /HPF (NEGATIVE) 06/06/18 02:57 Urine Bacteria Trace /HPF (NEGATIVE) 06/06/18 02:57 Urine Mucus Few /HPF (NEGATIVE) 06/05/18 19:39 Ur Culture Indicated? Yes/culture set up 06/06/18 02:57 - Plan (1) UTI (urinary tract infection) Status: Acute Plan: ACUTE ON CHRONIC RENAL FAILURE. BLOOD AND URINE CULTURE ON ADMISSION, YI CATH WITH STRICT I & OS, BP MONITORING, RESP CONSULT. CXR ON ADMISSION IN ER AND REPEAT Q AM. VERIFY HOME MEDICATION, IV ROCEPHIN AND TOBRAMYCIN. FEVER CONTROL, COMFORT CARE (2) Pneumonia Status: Acute Plan: RESP THERAPY, SUPPLEMENTAL O2. IV ATBX, JET NEBS. AM CXR (3) Fever Status: Acute (4) Cough Status: Acute (5) Alzheimers disease Status: Chronic (6) Dementia Status: Chronic (7) Diabetes mellitus Status: Chronic (8) Hypertension Status: Chronic (9) Hypothyroidism Status: Chronic (10) Acute renal failure Status: Acute (11) Hypotension Status: Acute Plan: HYDRATE, BP MONITORING
[2018-06-07] MEDS: BUTT CREAM (COMPOUND) TOP PRN (16:00)
[2018-06-07] MEDS: ROCEPHIN VIAL 1 GRAM IVP SCH (20:14)
[2018-06-08] MEDS: MORPHINE SULFATE INJ 2 MG INJ IVP PRN ×2 (03:31→09:33)
[2018-06-08] MEDS: NS 1000 ML 1,000 ML IV SCH ×2 (04:47)
[2018-06-08 06:57] LABS: BASOPHILS # (AUTO) 0.1 X10^3/uL (0.0-0.1); BASOPHILS % (AUTO) 0.3 % (0.2-1.0); EOSINOPHILS # (AUTO) 0.2 x10^3/uL (0.0-0.2); EOSINOPHILS % (AUTO) 0.7 % (0.9-2.9); HEMATOCRIT 28.6 % (36.0-47.0); HEMOGLOBIN 9.7 g/dL (12.0-16.0); LYMPHOCYTES # (AUTO) 1.4 X10^3/uL (1.3-2.9); LYMPHOCYTES % (AUTO) 6.1 % (21.0-51.0); MEAN CORPUSCULAR HEMOGLOBIN 34.5 pg (27.0-34.0); MEAN CORPUSCULAR HGB CONC 33.8 g/dL (33.0-35.0); MEAN CORPUSCULAR VOLUME 102.2 fL (80.0-100.0); MEAN PLATELET VOLUME 9.3 fL (7.4-11.0); MONOCYTES # (AUTO) 1.4 x10^3/uL (0.3-0.8); MONOCYTES % (AUTO) 6.2 % (0.0-13.0); NEUTROPHILS # (AUTO) 20.2 x10^3/uL (2.2-4.8); NEUTROPHILS % (AUTO) 86.7 % (42.0-75.0); PLATELET COUNT 146 X10^3/uL (150.0-450.0); RED CELL DISTRIBUTION WIDTH 14.4 % (11.6-16.5); WHITE BLOOD COUNT 23.3 X10^3/uL (3.6-10.0)
[2018-06-08 07:15] LABS: ALBUMIN 1.8 g/dL (3.4-5.0); CALCIUM 8.3 mg/dL (8.5-10.1); CARBON DIOXIDE 19.6 mmol/L (21-32); COR CA(FOR HYPOALB) 10.1 mg/dL (8.5-10.1); CREATININE 2.57 mg/dL (0.55-1.02); TOTAL PROTEIN 6.2 g/dL (6.4-8.2)
[2018-06-08 07:35] LABS: BAND NEUTROPHILS % 7 % (0-10); PLATELET MORPHOLOGY COMMENT NORMAL (NORMAL)
[2018-06-08] MEDS: XOPENEX 1.25 MG/3 ML NEBULE NEB SCH ×3 (10:09→21:32)
[2018-06-08] MEDS: INVANZ INJ 1 GM VIAL 1 GM in NS 100 ML IV + SPIKE MINIBAG* 100 ML IV SCH (10:27)
[2018-06-08] MEDS ORDERED: DULCOLAX SUPPOSITORY 10 MG RECTAL ONE (14:26)
[2018-06-08] MEDS: TYLENOL SUPP 650 MG PR PRN (16:30)
[2018-06-08] MEDS: BUTT CREAM (COMPOUND) TOP PRN (16:31)
[2018-06-08] MEDS ORDERED: TYLENOL SUPP 650 MG PR ONE (17:52)
--- NOTE | 2018-06-08 18:02 | PCM.PROG ---
Progress Note - Progress Note for Day of Date of Exam: 06/08/18 - Subjective Subjective: 82 WF ER ADMISSION ON 06/05 WITH FEVER, UTI, INCREASE LETHARGY AND SUSPECTED ASPIRATION AFTER PROFUSE VOMITING ON TUESDAY, THEN ONSET OF CHEST CONGESTION AND WHEEZING. PT FAMILY REVOKED COMFORT MEASURES BUT CURRENTLY WANTS PT TO RECEIVE TREATMENT FOR ACUTE INFECTION, HYPOTENSION. UC COLLECTED POSTIVE FOR ECOLI, BLOOD CULTURES POSITIVE FOR ECOLI, PT CURRENTLY ON INVANZ. PT HAS WB 23.3 HGB 9.7 BUN 69 CREAT 2.57. PT ON LEVOPHED FOR BP CONTROL, IMPROVE RENAL PROFUSION, BP THIS AM 105/56. PT CONTINUED WITH FEVER DURING THE NIGHT. REVIEWED LABS AND CXR WITH PT'S SON AND DAUGHTER, FAMILY CONTINUES TO WANT HER "COMFORTABLE" ASKING TO CONTINUE WITH MORPHINE PRN. DNR CONTINUED. - Past Medical Family Social History Past Med/Fam/Surg Hx: No changes since H&P Allergies: Allergies No Known Drug Allergies Allergy (Verified 01/12/18 10:23) - Review of Systems ROS: No change since H&P - Vital Signs and I&O's Vital Signs: Temperature 101.9 F Pulse Rate [Left Radial] 125 Pulse Rate 135 Respiratory Rate 28 Blood Pressure [Left Arm] 101/54 Blood Pressure [Right Arm] 99/55 Blood Pressure 95/55 O2 Sat by Pulse Oximetry 99 Intake and Output: Intake & Output 06/06/18 06/07/18 06/08/18 06/09/18 11:59 11:59 11:59 11:59 Intake Total 1100 / 1100 2880.00 / 2880.00 1533 / 1533 757 / 757 Output Total 125 / 125 810 / 810 1225 / 1225 500 / 500 Balance 975 / 975 2070.00 / 207.00 308 / 308 257 / 257 - Physical Exam Oriented: Unable to test (NO VERBAL RESPONSES) Eyes: Redness (MILD REDNESS TO BILATERAL CONJUCTIVA) Ear: Normal Throat: Dry Respiratory: Diminished, Rhonchi Cardiovascular: Normal. negative: Murmur, Edema Auscultation: Bowel Sounds: Normal Tenderness: Normal, Other (PEG TUBE PRESENT) Skin: Decreased Turgur, Wound (CHRONIC BILATERAL HEEL WOUNDS) Musculoskeletal: Right, Left, Arm, Leg, Deformity, Motor Deficit, Sensory Deficit Mood Description: Calm Affect: Flat Speech Pattern: Aphasic - Laboratory and Diagnostics Result Diagrams: 06/08/18 06:24 06/08/18 06:24 Labs: 06/05/18 19:52 Blood Blood Culture - Final Escherichia Coli 06/05/18 19:46 Blood Blood Culture - Final Escherichia Coli 06/05/18 19:39 Urine,Catheterized Urine Culture - Final Escherichia Coli 06/06/18 02:55 Urine,Catheterized Urine Culture - Final Escherichia Coli Laboratory WBC 23.3 X10^3/uL (3.6-10.0) H 06/08/18 06:24 RBC 2.80 X10^6/uL (3.5-5.4) L 06/08/18 06:24 Hgb 9.7 g/dL (12.0-16.0) L 06/08/18 06:24 Hct 28.6 % (36.0-47.0) L 06/08/18 06:24 MCV 102.2 fL (80.0-100.0) H 06/08/18 06:24 MCH 34.5 pg (27.0-34.0) H 06/08/18 06:24 MCHC 33.8 g/dL (33.0-35.0) 06/08/18 06:24 RDW 14.4 % (11.6-16.5) 06/08/18 06:24 Plt Count 146 X10^3/uL (150.0-450.0) L 06/08/18 06:24 Plt Count Comment Adequate (ADEQUATE) 06/08/18 06:24 MPV 9.3 fL (7.4-11.0) 06/08/18 06:24 Neut % (Auto) 86.7 % (42.0-75.0) H 06/08/18 06:24 Lymph % (Auto) 6.1 % (21.0-51.0) L 06/08/18 06:24 [place] % (Auto) 6.2 % (0.0-13.0) 06/08/18 06:24 Eos % (Auto) 0.7 % (0.9-2.9) L 06/08/18 06:24 Baso % (Auto) 0.3 % (0.2-1.0) 06/08/18 06:24 Neut # (Auto) 20.2 x10^3/uL (2.2-4.8) H 06/08/18 06:24 Lymph # (Auto) 1.4 X10^3/uL (1.3-2.9) 06/08/18 06:24 [place] # (Auto) 1.4 x10^3/uL (0.3-0.8) H 06/08/18 06:24 Eos # (Auto) 0.2 x10^3/uL (0.0-0.2) 06/08/18 06:24 Baso # (Auto) 0.1 X10^3/uL (0.0-0.1) 06/08/18 06:24 Absolute Nucleated RBC 0.0 /100WBC 06/08/18 06:24 Total Counted 100 06/08/18 06:24 Neutrophils % (Manual) 85 % (39-76) H 06/08/18 06:24 Band Neutrophils % 7 % (0-10) 06/08/18 06:24 Lymphocytes % (Manual) 5 % (13-43) L 06/08/18 06:24 Monocytes % (Manual) 1 % (4-9) L 06/08/18 06:24 Eosinophils % (Manual) 2 % (0-6) 06/08/18 06:24 Plt Morphology Comment Normal (NORMAL) 06/08/18 06:24 RBC Morphology Normal (NORMAL) 06/08/18 06:24 Sodium 144 mmol/L (136-145) 06/08/18 06:24 Corrected Sodium 144 mmol/L (136-145) 06/08/18 06:24 Potassium 5.1 mmol/L (3.5-5.1) 06/08/18 06:24 Chloride 111 mmol/L (98-107) H 06/08/18 06:24 Carbon Dioxide 19.6 mmol/L (21-32) L 06/08/18 06:24 BUN 69 mg/dL (7-18) H 06/08/18 06:24 Creatinine 2.57 mg/dL (0.55-1.02) H 06/08/18 06:24 Est GFR (MDRD) Af Amer 23 (>60) L 06/08/18 06:24 Est GFR (MDRD) Non-Af 19 (>60) L 06/08/18 06:24 Glucose 116 mg/dL (65-99) H 06/08/18 06:24 POC Glucose (mg/dL) 98 mg/dL (65-99) 06/06/18 12:08 Lactic Acid 2.6 mmol/L (0.4-2.0) H 06/05/18 19:46 Calcium 8.3 mg/dL (8.5-10.1) L 06/08/18 06:24 Corrected Calcium 10.1 mg/dL (8.5-10.1) 06/08/18 06:24 Total Bilirubin 0.50 mg/dL (0.2-1.0) 06/08/18 06:24 AST 47 Units/L (15-37) H 06/08/18 06:24 ALT 34 Units/L (12-78) 06/08/18 06:24 Alkaline Phosphatase 173 Units/L (46-116) H 06/08/18 06:24 Creatine Kinase 141 Units/L (26-192) 06/05/18 19:46 CK-MB (CK-2) 2.2 ng/mL (0-4.0) 06/05/18 19:46 CK/CKMB % Calc 1.6 % (<4) 06/05/18 19:46 Troponin I 0.66 ng/mL (0-1.5) 06/06/18 15:36 C-Reactive Protein 284.20 mg/L (0-3.0) H 06/05/18 19:46 B-Natriuretic Peptide 1090 pg/mL (0-79) H* 06/06/18 15:36 Total Protein 6.2 g/dL (6.4-8.2) L 06/08/18 06:24 Albumin 1.8 g/dL (3.4-5.0) L 06/08/18 06:24 Globulin 4.4 g/dL (2.5-4.5) 06/08/18 06:24 Albumin/Globulin Ratio 0.4 Ratio (1.1-2.1) L 06/08/18 06:24 Specimen Type Catherized urine 06/06/18 02:57 Urine Color Yellow (YELLOW) 06/06/18 02:57 Urine Appearance Cloudy (CLEAR) 06/06/18 02:57 Urine pH 7.0 (5.0 - 8.0) 06/06/18 02:57 Ur Specific [place] 1.005 (1.000-1.030) 06/06/18 02:57 Urine Protein 3+ (NEGATIVE) 06/06/18 02:57 Urine Glucose (UA) Negative (NEGATIVE) 06/06/18 02:57 Urine Ketones Negative (NEGATIVE) 06/06/18 02:57 Urine Occult Blood 4+ (NEGATIVE) 06/06/18 02:57 Urine Nitrite Negative (NEGATIVE) 06/06/18 02:57 Urine Bilirubin Negative (NEGATIVE) 06/06/18 02:57 Urine Urobilinogen 1+ (NORMAL) 06/06/18 02:57 Ur Leukocyte Esterase 3+ (NEGATIVE) 06/06/18 02:57 Urine RBC 30-50 /HPF (NONE SEEN) 06/06/18 02:57 Urine WBC 30-50 /HPF (NONE SEEN) 06/06/18 02:57 Ur Squamous Epith Cells Few /HPF (NEGATIVE) 06/06/18 02:57 Amorphous Sediment 1+ /HPF (NEGATIVE) 06/06/18 02:57 Urine Bacteria Trace /HPF (NEGATIVE) 06/06/18 02:57 Urine Mucus Few /HPF (NEGATIVE) 06/05/18 19:39 Ur Culture Indicated? Yes/culture set up 06/06/18 02:57 - Plan (1) E coli bacteremia Status: Acute Plan: BLOOD AND URINE CULTURE ON ADMISSION, POSITIVE FOR ECOLI YI CATH WITH STRICT I & OS, BP MONITORING, RESP CONSULT. CXR Q AM AND REPEAT AM LABS. VERIFY HOME MEDICATION, IV INVANZ. FEVER CONTROL, COMFORT CARE (2) Sepsis due to Escherichia coli Status: Acute (3) UTI (urinary tract infection) Status: Acute Plan: ACUTE ON CHRONIC RENAL FAILURE. BLOOD AND URINE CULTURE ON ADMISSION, POSITIVE FOR ECOLI YI CATH WITH STRICT I & OS, BP MONITORING, RESP CONSULT. CXR ON ADMISSION IN ER AND REPEAT Q AM. VERIFY HOME MEDICATION, IV INVANZ. FEVER CONTROL, COMFORT CARE (4) Pneumonia Status: Acute Plan: RESP THERAPY, SUPPLEMENTAL O2. IV ATBX, JET NEBS. AM CXR (5) Fever Status: Acute (6) Cough Status: Acute (7) Alzheimers disease Status: Chronic (8) Dementia Status: Chronic (9) Diabetes mellitus Status: Chronic (10) Hypertension Status: Chronic (11) Hypothyroidism Status: Chronic (12) Acute renal failure Status: Acute (13) Hypotension Status: Acute Plan: HYDRATE, BP MONITORING
[2018-06-09] MEDS: NS 1000 ML 1,000 ML IV SCH ×2 (04:14→06:13)
[2018-06-09] MEDS: MORPHINE SULFATE INJ 2 MG INJ IVP PRN ×2 (05:04→23:50)
[2018-06-09 05:46] LABS: BASOPHILS % (AUTO) 0.4 % (0.2-1.0); EOSINOPHILS % (AUTO) 0.4 % (0.9-2.9); HEMATOCRIT 27.2 % (36.0-47.0); HEMOGLOBIN 9.4 g/dL (12.0-16.0); LYMPHOCYTES # (AUTO) 0.4 X10^3/uL (1.3-2.9); LYMPHOCYTES % (AUTO) 6.7 % (21.0-51.0); MEAN CORPUSCULAR HEMOGLOBIN 35.1 pg (27.0-34.0); MEAN CORPUSCULAR HGB CONC 34.5 g/dL (33.0-35.0); MEAN CORPUSCULAR VOLUME 101.7 fL (80.0-100.0); MEAN PLATELET VOLUME 8.9 fL (7.4-11.0); MONOCYTES # (AUTO) 0 x10^3/uL (0.3-0.8); MONOCYTES % (AUTO) 0.5 % (0.0-13.0); NEUTROPHILS # (AUTO) 5.9 x10^3/uL (2.2-4.8); PLATELET COUNT 123 X10^3/uL (150.0-450.0); RED BLOOD COUNT 2.67 X10^6/uL (3.5-5.4); RED CELL DISTRIBUTION WIDTH 14.5 % (11.6-16.5); WHITE BLOOD COUNT 6.4 X10^3/uL (3.6-10.0)
[2018-06-09 06:03] LABS: ALANINE AMINOTRANSFERASE 37 Units/L (12-78); ALBUMIN 1.7 g/dL (3.4-5.0); ALKALINE PHOSPHATASE 230 Units/L (46-116); ASPARTATE AMINO TRANSFERASE 51 Units/L (15-37); BLOOD UREA NITROGEN 71 mg/dL (7-18); CALCIUM 8.5 mg/dL (8.5-10.1); CARBON DIOXIDE 19.7 mmol/L (21-32); CHLORIDE 114 mmol/L (98-107); COR CA(FOR HYPOALB) 10.3 mg/dL (8.5-10.1); CREATININE 2.59 mg/dL (0.55-1.02); SODIUM 148 mmol/L (136-145); TOTAL PROTEIN 6.2 g/dL (6.4-8.2); eGFR NON BLACK RACES 19 (>60)
[2018-06-09 06:59] LABS: BAND NEUTROPHILS % 4 % (0-10); PLATELET MORPHOLOGY COMMENT NORMAL (NORMAL)
[2018-06-09] MEDS: XOPENEX 1.25 MG/3 ML NEBULE NEB SCH ×3 (07:13→20:15)
[2018-06-09] MEDS: INVANZ INJ 1 GM VIAL 1 GM in NS 100 ML IV + SPIKE MINIBAG* 100 ML IV SCH (09:37)
[2018-06-09] MEDS: TYLENOL SUPP 650 MG PR PRN ×2 (09:37→23:34)
--- NOTE | 2018-06-09 10:18 | RAD ---
Examination: Portable AP chest History: SOB and fever Comparison 06/07/2018 Findings: Stable heart size with clear right chest. Persistent retrocardiac density consistent with a telectasis or pneumonia. No complicating pneumothorax. Stable position of right subclavian injection port. Fracture deformity right humerus. Impression: Persistent left lower lung infiltrate. No change. Reported By:
--- NOTE | 2018-06-09 14:15 | PCM.PROG ---
Progress Note - Progress Note for Day of Date of Exam: 06/09/18 - Subjective Subjective: 82 WF ER ADMISSION ON 06/05 WITH FEVER, UTI, INCREASE LETHARGY AND SUSPECTED ASPIRATION AFTER PROFUSE VOMITING ON TUESDAY, THEN ONSET OF CHEST CONGESTION AND WHEEZING. PT FAMILY REVOKED COMFORT MEASURES BUT CURRENTLY WANTS PT TO RECEIVE TREATMENT FOR ACUTE INFECTION, HYPOTENSION. UC COLLECTED POSTIVE FOR ECOLI, BLOOD CULTURES POSITIVE FOR ECOLI, PT CURRENTLY ON INVANZ. PT HAS WB 6.4 HGB 9.4 BUN 71 CREAT 2.59. PT ON LEVOPHED FOR BP CONTROL, IMPROVE RENAL PROFUSION. PT CONTINUED WITH FEVER DURING THE NIGHT. REVIEWED LABS AND CXR WITH PT'JULIENJACE, FAMILY CONTINUES TO WANT HER "COMFORTABLE" ASKING TO CONTINUE WITH MORPHINE PRN. DNR CONTINUED. IMPROVED CHEST CONGESTION THIS AM. PT OPEN EYES TO VERBAL AND TACTILE STIMULI - Past Medical Family Social History Past Med/Fam/Surg Hx: No changes since H&P Allergies: Allergies No Known Drug Allergies Allergy (Verified 01/12/18 10:23) - Review of Systems ROS: No change since H&P - Vital Signs and I&O's Vital Signs: Temperature 101.8 F Pulse Rate [Left Radial] 124 Pulse Rate 118 Respiratory Rate 22 Blood Pressure [Left Arm] 109/54 Blood Pressure [Right Arm] 99/55 Blood Pressure 82/42 O2 Sat by Pulse Oximetry 97 Intake and Output: Intake & Output 06/07/18 06/08/18 06/09/18 06/10/18 11:59 11:59 11:59 11:59 Intake Total 2880.00 / 2880.00 1533 / 1533 1670 / 1670 22.5 / 22.5 Output Total 810 / 810 1225 / 1225 1100 / 1100 Balance 2070.00 / 2070.00 308 / 308 570 / 570 22.5 / 22.5 - Physical Exam Oriented: Unable to test (NO VERBAL RESPONSES) Eyes: Redness (MILD REDNESS TO BILATERAL CONJUCTIVA) Ear: Normal Throat: Dry Respiratory: Diminished, Rhonchi Cardiovascular: Normal. negative: Murmur, Edema Auscultation: Bowel Sounds: Normal Tenderness: Normal, Other (PEG TUBE PRESENT) Skin: Decreased Turgur, Wound (CHRONIC BILATERAL HEEL WOUNDS) Musculoskeletal: Right, Left, Arm, Leg, Deformity, Motor Deficit, Sensory Deficit Mood Description: Calm Affect: Flat Speech Pattern: Aphasic - Laboratory and Diagnostics Result Diagrams: 06/09/18 05:14 06/09/18 05:14 Labs: 06/05/18 19:52 Blood Blood Culture - Final Escherichia Coli 06/05/18 19:46 Blood Blood Culture - Final Escherichia Coli 06/05/18 19:39 Urine,Catheterized Urine Culture - Final Escherichia Coli 06/06/18 02:55 Urine,Catheterized Urine Culture - Final Escherichia Coli Laboratory WBC 6.4 X10^3/uL (3.6-10.0) D 06/09/18 05:14 RBC 2.67 X10^6/uL (3.5-5.4) L 06/09/18 05:14 Hgb 9.4 g/dL (12.0-16.0) L 06/09/18 05:14 Hct 27.2 % (36.0-47.0) L 06/09/18 05:14 MCV 101.7 fL (80.0-100.0) H 06/09/18 05:14 MCH 35.1 pg (27.0-34.0) H 06/09/18 05:14 MCHC 34.5 g/dL (33.0-35.0) 06/09/18 05:14 RDW 14.5 % (11.6-16.5) 06/09/18 05:14 Plt Count 123 X10^3/uL (150.0-450.0) L 06/09/18 05:14 Plt Count Comment Adequate (ADEQUATE) 06/09/18 05:14 MPV 8.9 fL (7.4-11.0) 06/09/18 05:14 Neut % (Auto) 92.0 % (42.0-75.0) H 06/09/18 05:14 Lymph % (Auto) 6.7 % (21.0-51.0) L 06/09/18 05:14 [place] % (Auto) 0.5 % (0.0-13.0) 06/09/18 05:14 Eos % (Auto) 0.4 % (0.9-2.9) L 06/09/18 05:14 Baso % (Auto) 0.4 % (0.2-1.0) 06/09/18 05:14 Neut # (Auto) 5.9 x10^3/uL (2.2-4.8) H 06/09/18 05:14 Lymph # (Auto) 0.4 X10^3/uL (1.3-2.9) L 06/09/18 05:14 [place] # (Auto) 0 x10^3/uL (0.3-0.8) L 06/09/18 05:14 Eos # (Auto) 0.0 x10^3/uL (0.0-0.2) 06/09/18 05:14 Baso # (Auto) 0.0 X10^3/uL (0.0-0.1) 06/09/18 05:14 Absolute Nucleated RBC 0.1 /100WBC 06/09/18 05:14 Total Counted 100 06/09/18 05:14 Neutrophils % (Manual) 88 % (39-76) H 06/09/18 05:14 Band Neutrophils % 4 % (0-10) 06/09/18 05:14 Lymphocytes % (Manual) 7 % (13-43) L 06/09/18 05:14 Monocytes % (Manual) 1 % (4-9) L 06/09/18 05:14 Eosinophils % (Manual) 2 % (0-6) 06/08/18 06:24 Plt Morphology Comment Normal (NORMAL) 06/09/18 05:14 RBC Morphology Normal (NORMAL) 06/09/18 05:14 Sodium 148 mmol/L (136-145) H 06/09/18 05:14 Corrected Sodium TNP 06/09/18 05:14 Potassium 4.6 mmol/L (3.5-5.1) 06/09/18 05:14 Chloride 114 mmol/L (98-107) H 06/09/18 05:14 Carbon Dioxide 19.7 mmol/L (21-32) L 06/09/18 05:14 BUN 71 mg/dL (7-18) H 06/09/18 05:14 Creatinine 2.59 mg/dL (0.55-1.02) H 06/09/18 05:14 Est GFR (MDRD) Af Amer 23 (>60) L 06/09/18 05:14 Est GFR (MDRD) Non-Af 19 (>60) L 06/09/18 05:14 Glucose 92 mg/dL (65-99) 06/09/18 05:14 POC Glucose (mg/dL) 128 mg/dL (65-99) H 06/09/18 11:14 Lactic Acid 2.6 mmol/L (0.4-2.0) H 06/05/18 19:46 Calcium 8.5 mg/dL (8.5-10.1) 06/09/18 05:14 Corrected Calcium 10.3 mg/dL (8.5-10.1) H 06/09/18 05:14 Total Bilirubin 0.80 mg/dL (0.2-1.0) 06/09/18 05:14 AST 51 Units/L (15-37) H 06/09/18 05:14 ALT 37 Units/L (12-78) 06/09/18 05:14 Alkaline Phosphatase 230 Units/L (46-116) H 06/09/18 05:14 Creatine Kinase 141 Units/L (26-192) 06/05/18 19:46 CK-MB (CK-2) 2.2 ng/mL (0-4.0) 06/05/18 19:46 CK/CKMB % Calc 1.6 % (<4) 06/05/18 19:46 Troponin I 0.66 ng/mL (0-1.5) 06/06/18 15:36 C-Reactive Protein 284.20 mg/L (0-3.0) H 06/05/18 19:46 B-Natriuretic Peptide 1090 pg/mL (0-79) H* 06/06/18 15:36 Total Protein 6.2 g/dL (6.4-8.2) L 06/09/18 05:14 Albumin 1.7 g/dL (3.4-5.0) L 06/09/18 05:14 Globulin 4.5 g/dL (2.5-4.5) 06/09/18 05:14 Albumin/Globulin Ratio 0.4 Ratio (1.1-2.1) L 06/09/18 05:14 Specimen Type Catherized urine 06/06/18 02:57 Urine Color Yellow (YELLOW) 06/06/18 02:57 Urine Appearance Cloudy (CLEAR) 06/06/18 02:57 Urine pH 7.0 (5.0 - 8.0) 06/06/18 02:57 Ur Specific [place] 1.005 (1.000-1.030) 06/06/18 02:57 Urine Protein 3+ (NEGATIVE) 06/06/18 02:57 Urine Glucose (UA) Negative (NEGATIVE) 06/06/18 02:57 Urine Ketones Negative (NEGATIVE) 06/06/18 02:57 Urine Occult Blood 4+ (NEGATIVE) 06/06/18 02:57 Urine Nitrite Negative (NEGATIVE) 06/06/18 02:57 Urine Bilirubin Negative (NEGATIVE) 06/06/18 02:57 Urine Urobilinogen 1+ (NORMAL) 06/06/18 02:57 Ur Leukocyte Esterase 3+ (NEGATIVE) 06/06/18 02:57 Urine RBC 30-50 /HPF (NONE SEEN) 06/06/18 02:57 Urine WBC 30-50 /HPF (NONE SEEN) 06/06/18 02:57 Ur Squamous Epith Cells Few /HPF (NEGATIVE) 06/06/18 02:57 Amorphous Sediment 1+ /HPF (NEGATIVE) 06/06/18 02:57 Urine Bacteria Trace /HPF (NEGATIVE) 06/06/18 02:57 Urine Mucus Few /HPF (NEGATIVE) 06/05/18 19:39 Ur Culture Indicated? Yes/culture set up 06/06/18 02:57 - Plan (1) E coli bacteremia Status: Acute Plan: BLOOD AND URINE CULTURE ON ADMISSION, POSITIVE FOR ECOLI YI CATH WITH STRICT I & OS, BP MONITORING, RESP CONSULT. CXR Q AM AND REPEAT AM LABS. VERIFY HOME MEDICATION, IV INVANZ. FEVER CONTROL, COMFORT CARE (2) Sepsis due to Escherichia coli Status: Acute (3) UTI (urinary tract infection) Status: Acute Plan: ACUTE ON CHRONIC RENAL FAILURE. BLOOD AND URINE CULTURE ON ADMISSION, POSITIVE FOR ECOLI YI CATH WITH STRICT I & OS, BP MONITORING, RESP CONSULT. CXR ON ADMISSION IN ER AND REPEAT Q AM. VERIFY HOME MEDICATION, IV INVANZ. FEVER CONTROL, COMFORT CARE (4) Pneumonia Status: Acute Plan: RESP THERAPY, SUPPLEMENTAL O2. IV ATBX, JET NEBS. AM CXR (5) Fever Status: Acute (6) Cough Status: Acute (7) Alzheimers disease Status: Chronic (8) Dementia Status: Chronic (9) Diabetes mellitus Status: Chronic (10) Hypertension Status: Chronic (11) Hypothyroidism Status: Chronic (12) Acute renal failure Status: Acute (13) Hypotension Status: Acute Plan: HYDRATE, BP MONITORING
[2018-06-09] MEDS ORDERED: NS 1/2 1000 ML IV 1,000 ML IV ONE (17:07)
[2018-06-09] MEDS: NS 1/2 1000 ML IV 1,000 ML IV SCH (17:10)
[2018-06-10] MEDS: LEVOPHED INJ 8 MG in D5W 250 ML IV 242 ML IV PRN (00:41)
[2018-06-10] MEDS: XOPENEX 1.25 MG/3 ML NEBULE NEB SCH ×2 (05:45→22:35)
[2018-06-10 08:09] LABS: BASOPHILS % (AUTO) 0.1 % (0.2-1.0); EOSINOPHILS # (AUTO) 0.5 x10^3/uL (0.0-0.2); EOSINOPHILS % (AUTO) 1.9 % (0.9-2.9); HEMATOCRIT 25.2 % (36.0-47.0); HEMOGLOBIN 8.6 g/dL (12.0-16.0); LYMPHOCYTES # (AUTO) 0.7 X10^3/uL (1.3-2.9); LYMPHOCYTES % (AUTO) 2.8 % (21.0-51.0); MEAN CORPUSCULAR HEMOGLOBIN 34.8 pg (27.0-34.0); MEAN CORPUSCULAR HGB CONC 34.2 g/dL (33.0-35.0); MEAN CORPUSCULAR VOLUME 101.9 fL (80.0-100.0); MEAN PLATELET VOLUME 9.4 fL (7.4-11.0); MONOCYTES # (AUTO) 0.9 x10^3/uL (0.3-0.8); MONOCYTES % (AUTO) 3.5 % (0.0-13.0); NEUTROPHILS # (AUTO) 23.1 x10^3/uL (2.2-4.8); NEUTROPHILS % (AUTO) 91.7 % (42.0-75.0); PLATELET COUNT 108 X10^3/uL (150.0-450.0); RED BLOOD COUNT 2.47 X10^6/uL (3.5-5.4); RED CELL DISTRIBUTION WIDTH 14.6 % (11.6-16.5); WHITE BLOOD COUNT 25.3 X10^3/uL (3.6-10.0)
[2018-06-10 08:22] LABS: ALBUMIN 1.5 g/dL (3.4-5.0); CALCIUM 8.1 mg/dL (8.5-10.1); CARBON DIOXIDE 21.3 mmol/L (21-32); COR CA(FOR HYPOALB) 10.1 mg/dL (8.5-10.1); CREATININE 2.3 mg/dL (0.55-1.02); TOTAL PROTEIN 5.6 g/dL (6.4-8.2)
[2018-06-10 08:27] LABS: BAND NEUTROPHILS % 10 % (0-10)
[2018-06-10 08:29] LABS: PLATELET MORPHOLOGY COMMENT NORMAL (NORMAL)
[2018-06-10] MEDS: INVANZ INJ 1 GM VIAL 0.5 GM in NS 100 ML IV + SPIKE MINIBAG* 100 ML IV SCH (09:37)
--- NOTE | 2018-06-10 13:09 | PCM.PROG ---
Progress Note - Progress Note for Day of Date of Exam: 06/10/18 - Subjective Subjective: 82 WF ER ADMISSION ON 06/05 WITH FEVER, UTI, INCREASE LETHARGY AND SUSPECTED ASPIRATION AFTER PROFUSE VOMITING ON TUESDAY, THEN ONSET OF CHEST CONGESTION AND WHEEZING. PT FAMILY REVOKED COMFORT MEASURES BUT CURRENTLY WANTS PT TO RECEIVE TREATMENT FOR ACUTE INFECTION, HYPOTENSION. UC COLLECTED POSTIVE FOR ECOLI, BLOOD CULTURES POSITIVE FOR ECOLI, PT CURRENTLY ON INVANZ. PT HAS WB 25.3 HGB 8.6 BUN 70 CREAT 2.30. PT ON LEVOPHED FOR BP CONTROL, IMPROVE RENAL PROFUSION. PT CONTINUED WITH FEVER DURING THE NIGHT. REVIEWED LABS AND CXR WITH PT'DEEDEEJOSE, FAMILY CONTINUES TO WANT HER "COMFORTABLE" ASKING TO CONTINUE WITH MORPHINE PRN. DNR CONTINUED. IMPROVED CHEST CONGESTION THIS AM. PT OPEN EYES TO VERBAL AND TACTILE STIMULI - Past Medical Family Social History Past Med/Fam/Surg Hx: No changes since H&P Allergies: Allergies No Known Drug Allergies Allergy (Verified 01/12/18 10:23) - Review of Systems ROS: No change since H&P - Vital Signs and I&O's Vital Signs: Temperature 97.1 F Pulse Rate [Left Radial] 124 Pulse Rate 87 Respiratory Rate 21 Blood Pressure [Left Arm] 109/54 Blood Pressure [Right Arm] 99/55 Blood Pressure 105/53 O2 Sat by Pulse Oximetry 100 Intake and Output: Intake & Output 06/08/18 06/09/18 06/10/18 06/11/18 11:59 11:59 11:59 11:59 Intake Total 1533 / 1533 1670 / 1670 1562.5 / 1562.5 Output Total 1225 / 1225 1100 / 1100 1125 / 1125 Balance 308 / 308 570 / 570 437.5 / 437.5 - Physical Exam Oriented: Unable to test (NO VERBAL RESPONSES) Eyes: Redness (MILD REDNESS TO BILATERAL CONJUCTIVA) Ear: Normal Throat: Dry Respiratory: Diminished, Rhonchi Cardiovascular: Normal. negative: Murmur, Edema Auscultation: Bowel Sounds: Normal Tenderness: Normal, Other (PEG TUBE PRESENT) Skin: Decreased Turgur, Wound (CHRONIC BILATERAL HEEL WOUNDS) Musculoskeletal: Right, Left, Arm, Leg, Deformity, Motor Deficit, Sensory Deficit Mood Description: Calm Affect: Flat Speech Pattern: Aphasic - Laboratory and Diagnostics Result Diagrams: 06/10/18 07:35 06/10/18 07:35 Labs: 06/05/18 19:52 Blood Blood Culture - Final Escherichia Coli 06/05/18 19:46 Blood Blood Culture - Final Escherichia Coli 06/05/18 19:39 Urine,Catheterized Urine Culture - Final Escherichia Coli 06/06/18 02:55 Urine,Catheterized Urine Culture - Final Escherichia Coli Laboratory WBC 25.3 X10^3/uL (3.6-10.0) H D 06/10/18 07:35 RBC 2.47 X10^6/uL (3.5-5.4) L 06/10/18 07:35 Hgb 8.6 g/dL (12.0-16.0) L 06/10/18 07:35 Hct 25.2 % (36.0-47.0) L 06/10/18 07:35 MCV 101.9 fL (80.0-100.0) H 06/10/18 07:35 MCH 34.8 pg (27.0-34.0) H 06/10/18 07:35 MCHC 34.2 g/dL (33.0-35.0) 06/10/18 07:35 RDW 14.6 % (11.6-16.5) 06/10/18 07:35 Plt Count 108 X10^3/uL (150.0-450.0) L 06/10/18 07:35 Plt Count Comment Decreased (ADEQUATE) A 06/10/18 07:35 MPV 9.4 fL (7.4-11.0) 06/10/18 07:35 Neut % (Auto) 91.7 % (42.0-75.0) H 06/10/18 07:35 Lymph % (Auto) 2.8 % (21.0-51.0) L 06/10/18 07:35 [place] % (Auto) 3.5 % (0.0-13.0) 06/10/18 07:35 Eos % (Auto) 1.9 % (0.9-2.9) 06/10/18 07:35 Baso % (Auto) 0.1 % (0.2-1.0) L 06/10/18 07:35 Neut # (Auto) 23.1 x10^3/uL (2.2-4.8) H 06/10/18 07:35 Lymph # (Auto) 0.7 X10^3/uL (1.3-2.9) L 06/10/18 07:35 [place] # (Auto) 0.9 x10^3/uL (0.3-0.8) H 06/10/18 07:35 Eos # (Auto) 0.5 x10^3/uL (0.0-0.2) H 06/10/18 07:35 Baso # (Auto) 0.0 X10^3/uL (0.0-0.1) 06/10/18 07:35 Absolute Nucleated RBC 0.0 /100WBC 06/10/18 07:35 Total Counted 100 06/10/18 07:35 Neutrophils % (Manual) 82 % (39-76) H 06/10/18 07:35 Band Neutrophils % 10 % (0-10) 06/10/18 07:35 Lymphocytes % (Manual) 7 % (13-43) L 06/10/18 07:35 Monocytes % (Manual) 1 % (4-9) L 06/10/18 07:35 Eosinophils % (Manual) 2 % (0-6) 06/08/18 06:24 Plt Morphology Comment Normal (NORMAL) 06/10/18 07:35 RBC Morphology Abnormal (NORMAL) A 06/10/18 07:35 Macrocytosis Slight A 06/10/18 07:35 Sodium 149 mmol/L (136-145) H 06/10/18 07:35 Corrected Sodium 150 mmol/L (136-145) H 06/10/18 07:35 Potassium 4.3 mmol/L (3.5-5.1) 06/10/18 07:35 Chloride 116 mmol/L (98-107) H* 06/10/18 07:35 Carbon Dioxide 21.3 mmol/L (21-32) 06/10/18 07:35 BUN 70 mg/dL (7-18) H 06/10/18 07:35 Creatinine 2.30 mg/dL (0.55-1.02) H 06/10/18 07:35 Est GFR (MDRD) Af Amer 26 (>60) L 06/10/18 07:35 Est GFR (MDRD) Non-Af 22 (>60) L 06/10/18 07:35 Glucose 130 mg/dL (65-99) H 06/10/18 07:35 POC Glucose (mg/dL) 118 mg/dL (65-99) H 06/10/18 06:07 Lactic Acid 2.6 mmol/L (0.4-2.0) H 06/05/18 19:46 Calcium 8.1 mg/dL (8.5-10.1) L 06/10/18 07:35 Corrected Calcium 10.1 mg/dL (8.5-10.1) 06/10/18 07:35 Total Bilirubin 0.70 mg/dL (0.2-1.0) 06/10/18 07:35 AST 40 Units/L (15-37) H 06/10/18 07:35 ALT 36 Units/L (12-78) 06/10/18 07:35 Alkaline Phosphatase 225 Units/L (46-116) H 06/10/18 07:35 Creatine Kinase 141 Units/L (26-192) 06/05/18 19:46 CK-MB (CK-2) 2.2 ng/mL (0-4.0) 06/05/18 19:46 CK/CKMB % Calc 1.6 % (<4) 06/05/18 19:46 Troponin I 0.66 ng/mL (0-1.5) 06/06/18 15:36 C-Reactive Protein 284.20 mg/L (0-3.0) H 06/05/18 19:46 B-Natriuretic Peptide 1090 pg/mL (0-79) H* 06/06/18 15:36 Total Protein 5.6 g/dL (6.4-8.2) L 06/10/18 07:35 Albumin 1.5 g/dL (3.4-5.0) L 06/10/18 07:35 Globulin 4.1 g/dL (2.5-4.5) 06/10/18 07:35 Albumin/Globulin Ratio 0.4 Ratio (1.1-2.1) L 06/10/18 07:35 Specimen Type Catherized urine 06/06/18 02:57 Urine Color Yellow (YELLOW) 06/06/18 02:57 Urine Appearance Cloudy (CLEAR) 06/06/18 02:57 Urine pH 7.0 (5.0 - 8.0) 06/06/18 02:57 Ur Specific [place] 1.005 (1.000-1.030) 06/06/18 02:57 Urine Protein 3+ (NEGATIVE) 06/06/18 02:57 Urine Glucose (UA) Negative (NEGATIVE) 06/06/18 02:57 Urine Ketones Negative (NEGATIVE) 06/06/18 02:57 Urine Occult Blood 4+ (NEGATIVE) 06/06/18 02:57 Urine Nitrite Negative (NEGATIVE) 06/06/18 02:57 Urine Bilirubin Negative (NEGATIVE) 06/06/18 02:57 Urine Urobilinogen 1+ (NORMAL) 06/06/18 02:57 Ur Leukocyte Esterase 3+ (NEGATIVE) 06/06/18 02:57 Urine RBC 30-50 /HPF (NONE SEEN) 06/06/18 02:57 Urine WBC 30-50 /HPF (NONE SEEN) 06/06/18 02:57 Ur Squamous Epith Cells Few /HPF (NEGATIVE) 06/06/18 02:57 Amorphous Sediment 1+ /HPF (NEGATIVE) 06/06/18 02:57 Urine Bacteria Trace /HPF (NEGATIVE) 06/06/18 02:57 Urine Mucus Few /HPF (NEGATIVE) 06/05/18 19:39 Ur Culture Indicated? Yes/culture set up 06/06/18 02:57 - Plan (1) E coli bacteremia Status: Acute Plan: BLOOD AND URINE CULTURE ON ADMISSION, POSITIVE FOR ECOLI YI CATH WITH STRICT I & OS, BP MONITORING, RESP CONSULT. CXR Q AM AND REPEAT AM LABS. VERIFY HOME MEDICATION, IV INVANZ. FEVER CONTROL, COMFORT CARE (2) Sepsis due to Escherichia coli Status: Acute (3) UTI (urinary tract infection) Status: Acute Plan: ACUTE ON CHRONIC RENAL FAILURE. BLOOD AND URINE CULTURE ON ADMISSION, POSITIVE FOR ECOLI YI CATH WITH STRICT I & OS, BP MONITORING, RESP CONSULT. CXR ON ADMISSION IN ER AND REPEAT Q AM. VERIFY HOME MEDICATION, IV INVANZ. FEVER CONTROL, COMFORT CARE (4) Pneumonia Status: Acute Plan: RESP THERAPY, SUPPLEMENTAL O2. IV ATBX, JET NEBS. AM CXR (5) Fever Status: Acute (6) Cough Status: Acute (7) Alzheimers disease Status: Chronic (8) Dementia Status: Chronic (9) Diabetes mellitus Status: Chronic (10) Hypertension Status: Chronic (11) Hypothyroidism Status: Chronic (12) Acute renal failure Status: Acute (13) Hypotension Status: Acute Plan: HYDRATE, BP MONITORING
[2018-06-10] MEDS: TYLENOL SUPP 650 MG PR PRN (16:37)
[2018-06-10] MEDS ORDERED: NS 1/2 1000 ML IV 1,000 ML IV ONE (21:47)
[2018-06-10] MEDS: NS 1/2 1000 ML IV 1,000 ML IV SCH (22:13)
[2018-06-11 05:54] LABS: BASOPHILS % (AUTO) 0.1 % (0.2-1.0); EOSINOPHILS # (AUTO) 0.3 x10^3/uL (0.0-0.2); EOSINOPHILS % (AUTO) 1.8 % (0.9-2.9); HEMATOCRIT 23.7 % (36.0-47.0); HEMOGLOBIN 8.1 g/dL (12.0-16.0); LYMPHOCYTES # (AUTO) 1.3 X10^3/uL (1.3-2.9); LYMPHOCYTES % (AUTO) 8.6 % (21.0-51.0); MEAN CORPUSCULAR HEMOGLOBIN 35.1 pg (27.0-34.0); MEAN CORPUSCULAR HGB CONC 34.2 g/dL (33.0-35.0); MEAN CORPUSCULAR VOLUME 102.5 fL (80.0-100.0); MEAN PLATELET VOLUME 9.7 fL (7.4-11.0); MONOCYTES # (AUTO) 0.9 x10^3/uL (0.3-0.8); NEUTROPHILS # (AUTO) 12.8 x10^3/uL (2.2-4.8); NEUTROPHILS % (AUTO) 83.5 % (42.0-75.0); PLATELET COUNT 106 X10^3/uL (150.0-450.0); RED BLOOD COUNT 2.31 X10^6/uL (3.5-5.4); RED CELL DISTRIBUTION WIDTH 14.8 % (11.6-16.5); WHITE BLOOD COUNT 15.3 X10^3/uL (3.6-10.0)
[2018-06-11] MEDS: XOPENEX 1.25 MG/3 ML NEBULE NEB SCH ×3 (06:09→20:10)
[2018-06-11] MEDS: MORPHINE SULFATE INJ 2 MG INJ IVP PRN ×3 (06:22→20:45)
[2018-06-11 06:24] LABS: ALBUMIN 1.4 g/dL (3.4-5.0); CARBON DIOXIDE 21.4 mmol/L (21-32); COR CA(FOR HYPOALB) 10.1 mg/dL (8.5-10.1); CREATININE 1.73 mg/dL (0.55-1.02); TOTAL PROTEIN 5.3 g/dL (6.4-8.2)
[2018-06-11] MEDS: LEVOPHED INJ 8 MG in D5W 250 ML IV 242 ML IV PRN (06:53)
[2018-06-11] MEDS ORDERED: NS 100 ML IV 100 ML IV ONE (08:36)
[2018-06-11] MEDS: NS 1/2 1000 ML IV 1,000 ML IV SCH (08:37)
[2018-06-11] MEDS: INVANZ INJ 1 GM VIAL 0.5 GM in NS 100 ML IV + SPIKE MINIBAG* 100 ML IV SCH (09:07)
--- NOTE | 2018-06-11 14:21 | RAD ---
Examination: Portable AP chest History: Follow-up Comparison 06/09/2018 Findings: Stable heart size. No change in position of the right subclavian injection port. Persistent airspace opacity left base with suspect pleural effusion. Impression: No change. Continued evidence for left lower lobe pneumonia and associated pleural fluid. Reported By:
[2018-06-11] MEDS: ISOPTO ATROPINE SL PRN ×3 (15:13→20:52)
[2018-06-11] MEDS: ATIVAN INJ 2 MG VIAL IVP PRN ×2 (19:22→23:27)
[2018-06-11] MEDS ORDERED: NS 1/2 1000 ML IV 1,000 ML IV SCH (20:00)
[2018-06-12] MEDS ORDERED: NS 1/2 1000 ML IV 1,000 ML IV ONE (00:05)
[2018-06-12] MEDS: MORPHINE SULFATE INJ 2 MG INJ IVP PRN ×4 (00:06→19:00)
[2018-06-12] MEDS: ATIVAN INJ 2 MG VIAL IVP PRN ×3 (04:16→21:15)
[2018-06-12 05:28] LABS: BASOPHILS % (AUTO) 0.3 % (0.2-1.0); EOSINOPHILS # (AUTO) 0.2 x10^3/uL (0.0-0.2); EOSINOPHILS % (AUTO) 2.4 % (0.9-2.9); HEMATOCRIT 22.6 % (36.0-47.0); HEMOGLOBIN 7.8 g/dL (12.0-16.0); LYMPHOCYTES # (AUTO) 1.1 X10^3/uL (1.3-2.9); LYMPHOCYTES % (AUTO) 14.8 % (21.0-51.0); MEAN CORPUSCULAR HEMOGLOBIN 35.3 pg (27.0-34.0); MEAN CORPUSCULAR HGB CONC 34.8 g/dL (33.0-35.0); MEAN CORPUSCULAR VOLUME 101.6 fL (80.0-100.0); MEAN PLATELET VOLUME 9.3 fL (7.4-11.0); MONOCYTES # (AUTO) 0.6 x10^3/uL (0.3-0.8); MONOCYTES % (AUTO) 8.2 % (0.0-13.0); NEUTROPHILS # (AUTO) 5.5 x10^3/uL (2.2-4.8); NEUTROPHILS % (AUTO) 74.3 % (42.0-75.0); PLATELET COUNT 127 X10^3/uL (150.0-450.0); RED BLOOD COUNT 2.22 X10^6/uL (3.5-5.4); RED CELL DISTRIBUTION WIDTH 14.8 % (11.6-16.5); WHITE BLOOD COUNT 7.4 X10^3/uL (3.6-10.0)
[2018-06-12 05:40] LABS: ALANINE AMINOTRANSFERASE 24 Units/L (12-78); ALBUMIN 1.4 g/dL (3.4-5.0); ALKALINE PHOSPHATASE 178 Units/L (46-116); ASPARTATE AMINO TRANSFERASE 17 Units/L (15-37); BLOOD UREA NITROGEN 55 mg/dL (7-18); CALCIUM 7.9 mg/dL (8.5-10.1); CARBON DIOXIDE 23.6 mmol/L (21-32); CREATININE 1.39 mg/dL (0.55-1.02); TOTAL PROTEIN 5.3 g/dL (6.4-8.2); eGFR NON BLACK RACES 39 (>60)
[2018-06-12] MEDS: XOPENEX 1.25 MG/3 ML NEBULE NEB SCH (05:57)
[2018-06-12 05:59] LABS: CHLORIDE 119 mmol/L (98-107); SODIUM 151 mmol/L (136-145)
[2018-06-12 06:09] LABS: HYPOCHROMASIA SLIGHT; PLATELET MORPHOLOGY COMMENT NORMAL (NORMAL)
[2018-06-12] MEDS: INVANZ INJ 1 GM VIAL 0.5 GM in NS 100 ML IV 100 ML IV SCH (08:53)
--- NOTE | 2018-06-12 13:41 | PCM.PROG ---
Progress Note - Subjective Subjective: 82 WF ER ADMISSION ON 06/05 WITH FEVER, UTI, INCREASE LETHARGY AND SUSPECTED ASPIRATION AFTER PROFUSE VOMITING ON TUESDAY PRIOR TO ADMISSION, THEN ONSET OF CHEST CONGESTION AND WHEEZING. PT FAMILY REVOKED COMFORT MEASURES BUT CURRENTLY WANTS PT TO RECEIVE TREATMENT FOR ACUTE INFECTION, HYPOTENSION. UC COLLECTED POSTIVE FOR ECOLI, BLOOD CULTURES POSITIVE FOR ECOLI, PT CURRENTLY ON INVANZ. PT HAS WB 15.3 HGB 8.1 BUN 64 CREAT 1.73. PT ON LEVOPHED FOR BP CONTROL, IMPROVE RENAL PROFUSION. NA 148 PT RECEIVED H2O VIA NGTUNE AND 1/2NS AT KVO. REVIEWED LABS AND CXR WITH PT'JULIENJACE, FAMILY CONTINUES TO WANT HER "COMFORTABLE" ASKING TO CONTINUE WITH MORPHINE PRN. DNR CONTINUED. DIFFUSE RHONCHI ON EXAM, CXR REVEALED PERSISTANT LLL PNEUMONIA. - Past Medical Family Social History Past Med/Fam/Surg Hx: No changes since H&P Allergies: Allergies No Known Drug Allergies Allergy (Verified 01/12/18 10:23) - Review of Systems ROS: No change since H&P - Vital Signs and I&O's Vital Signs: Temperature 97.9 F Pulse Rate [Left Radial] 124 Pulse Rate 101 Respiratory Rate 26 Blood Pressure [Left Arm] 109/54 Blood Pressure [Right Arm] 99/55 Blood Pressure 110/54 O2 Sat by Pulse Oximetry 99 Intake and Output: Intake & Output 06/10/18 06/11/18 06/12/18 06/13/18 11:59 11:59 11:59 11:59 Intake Total 1562.5 / 1562.5 2502.5 / 2502.5 1665 / 1665 Output Total 1125 / 1125 1750 / 1750 1650 / 1650 Balance 437.5 / 437.5 752.5 / 752.5 - Physical Exam Oriented: Unable to test (NO VERBAL RESPONSES) Eyes: Redness (MILD REDNESS TO BILATERAL CONJUCTIVA) Ear: Normal Throat: Dry Respiratory: Diminished, Rhonchi Cardiovascular: Normal. negative: Murmur, Edema Auscultation: Bowel Sounds: Normal Tenderness: Normal, Other (PEG TUBE PRESENT) Skin: Decreased Turgur, Wound (CHRONIC BILATERAL HEEL WOUNDS) Musculoskeletal: Right, Left, Arm, Leg, Deformity, Motor Deficit, Sensory D eficit Mood Description: Calm Affect: Flat Speech Pattern: Aphasic - Laboratory and Diagnostics Result Diagrams: 06/12/18 04:58 06/12/18 04:58 Labs: 06/05/18 19:52 Blood Blood Culture - Final Escherichia Coli 06/05/18 19:46 Blood Blood Culture - Final Escherichia Coli 06/05/18 19:39 Urine,Catheterized Urine Culture - Final Escherichia Coli 06/06/18 02:55 Urine,Catheterized Urine Culture - Final Escherichia Coli Laboratory WBC 7.4 X10^3/uL (3.6-10.0) 06/12/18 04:58 RBC 2.22 X10^6/uL (3.5-5.4) L 06/12/18 04:58 Hgb 7.8 g/dL (12.0-16.0) L 06/12/18 04:58 Hct 22.6 % (36.0-47.0) L 06/12/18 04:58 MCV 101.6 fL (80.0-100.0) H 06/12/18 04:58 MCH 35.3 pg (27.0-34.0) H 06/12/18 04:58 MCHC 34.8 g/dL (33.0-35.0) 06/12/18 04:58 RDW 14.8 % (11.6-16.5) 06/12/18 04:58 Plt Count 127 X10^3/uL (150.0-450.0) L 06/12/18 04:58 Plt Count Comment Adequate (ADEQUATE) 06/12/18 04:58 MPV 9.3 fL (7.4-11.0) 06/12/18 04:58 Neut % (Auto) 74.3 % (42.0-75.0) 06/12/18 04:58 Lymph % (Auto) 14.8 % (21.0-51.0) L 06/12/18 04:58 [place] % (Auto) 8.2 % (0.0-13.0) 06/12/18 04:58 Eos % (Auto) 2.4 % (0.9-2.9) 06/12/18 04:58 Baso % (Auto) 0.3 % (0.2-1.0) 06/12/18 04:58 Neut # (Auto) 5.5 x10^3/uL (2.2-4.8) H 06/12/18 04:58 Lymph # (Auto) 1.1 X10^3/uL (1.3-2.9) L 06/12/18 04:58 [place] # (Auto) 0.6 x10^3/uL (0.3-0.8) 06/12/18 04:58 Eos # (Auto) 0.2 x10^3/uL (0.0-0.2) 06/12/18 04:58 Baso # (Auto) 0.0 X10^3/uL (0.0-0.1) 06/12/18 04:58 Absolute Nucleated RBC 0.0 /100WBC 06/12/18 04:58 Total Counted 100 06/10/18 07:35 Neutrophils % (Manual) 82 % (39-76) H 06/10/18 07:35 Band Neutrophils % 10 % (0-10) 06/10/18 07:35 Lymphocytes % (Manual) 7 % (13-43) L 06/10/18 07:35 Monocytes % (Manual) 1 % (4-9) L 06/10/18 07:35 Eosinophils % (Manual) 2 % (0-6) 06/08/18 06:24 Plt Morphology Comment Normal (NORMAL) 06/12/18 04:58 RBC Morphology Abnormal (NORMAL) A 06/12/18 04:58 Hypochromasia Slight A 06/12/18 04:58 Macrocytosis Slight A 06/10/18 07:35 Sodium 151 mmol/L (136-145) H* 06/12/18 04:58 Corrected Sodium TNP 06/12/18 04:58 Potassium 4.1 mmol/L (3.5-5.1) 06/12/18 04:58 Chloride 119 mmol/L (98-107) H* 06/12/18 04:58 Carbon Dioxide 23.6 mmol/L (21-32) 06/12/18 04:58 BUN 55 mg/dL (7-18) H 06/12/18 04:58 Creatinine 1.39 mg/dL (0.55-1.02) H 06/12/18 04:58 Est GFR (MDRD) Af Amer 47 (>60) L 06/12/18 04:58 Est GFR (MDRD) Non-Af 39 (>60) L 06/12/18 04:58 Glucose 79 mg/dL (65-99) 06/12/18 04:58 POC Glucose (mg/dL) 84 mg/dL (65-99) 06/12/18 10:49 Lactic Acid 2.6 mmol/L (0.4-2.0) H 06/05/18 19:46 Calcium 7.9 mg/dL (8.5-10.1) L 06/12/18 04:58 Corrected Calcium 10.0 mg/dL (8.5-10.1) 06/12/18 04:58 Total Bilirubin 0.30 mg/dL (0.2-1.0) 06/12/18 04:58 AST 17 Units/L (15-37) 06/12/18 04:58 ALT 24 Units/L (12-78) 06/12/18 04:58 Alkaline Phosphatase 178 Units/L (46-116) H 06/12/18 04:58 Creatine Kinase 141 Units/L (26-192) 06/05/18 19:46 CK-MB (CK-2) 2.2 ng/mL (0-4.0) 06/05/18 19:46 CK/CKMB % Calc 1.6 % (<4) 06/05/18 19:46 Troponin I 0.66 ng/mL (0-1.5) 06/06/18 15:36 C-Reactive Protein 284.20 mg/L (0-3.0) H 06/05/18 19:46 B-Natriuretic Peptide 1090 pg/mL (0-79) H* 06/06/18 15:36 Total Protein 5.3 g/dL (6.4-8.2) L 06/12/18 04:58 Albumin 1.4 g/dL (3.4-5.0) L 06/12/18 04:58 Globulin 3.9 g/dL (2.5-4.5) 06/12/18 04:58 Albumin/Globulin Ratio 0.4 Ratio (1.1-2.1) L 06/12/18 04:58 Specimen Type Catherized urine 06/06/18 02:57 Urine Color Yellow (YELLOW) 06/06/18 02:57 Urine Appearance Cloudy (CLEAR) 06/06/18 02:57 Urine pH 7.0 (5.0 - 8.0) 06/06/18 02:57 Ur Specific [place] 1.005 (1.000-1.030) 06/06/18 02:57 Urine Protein 3+ (NEGATIVE) 06/06/18 02:57 Urine Glucose (UA) Negative (NEGATIVE) 06/06/18 02:57 Urine Ketones Negative (NEGATIVE) 06/06/18 02:57 Urine Occult Blood 4+ (NEGATIVE) 06/06/18 02:57 Urine Nitrite Negative (NEGATIVE) 06/06/18 02:57 Urine Bilirubin Negative (NEGATIVE) 06/06/18 02:57 Urine Urobilinogen 1+ (NORMAL) 06/06/18 02:57 Ur Leukocyte Esterase 3+ (NEGATIVE) 06/06/18 02:57 Urine RBC 30-50 /HPF (NONE SEEN) 06/06/18 02:57 Urine WBC 30-50 /HPF (NONE SEEN) 06/06/18 02:57 Ur Squamous Epith Cells Few /HPF (NEGATIVE) 06/06/18 02:57 Amorphous Sediment 1+ /HPF (NEGATIVE) 06/06/18 02:57 Urine Bacteria Trace /HPF (NEGATIVE) 06/06/18 02:57 Urine Mucus Few /HPF (NEGATIVE) 06/05/18 19:39 Ur Culture Indicated? Yes/culture set up 06/06/18 02:57 - Plan (1) E coli bacteremia Status: Acute Plan: BLOOD AND URINE CULTURE ON ADMISSION, POSITIVE FOR ECOLI YI CATH WITH STRICT I & OS, BP MONITORING, RESP CONSULT. CXR Q AM AND REPEAT AM LABS. VERIFY HOME MEDICATION, IV INVANZ. FEVER CONTROL, COMFORT CARE (2) Sepsis due to Escherichia coli Status: Acute (3) UTI (urinary tract infection) Status: Acute Plan: ACUTE ON CHRONIC RENAL FAILURE. BLOOD AND URINE CULTURE ON ADMISSION, POSITIVE FOR ECOLI YI CATH WITH STRICT I & OS, BP MONITORING, RESP CONSULT. CXR ON ADMISSION IN ER AND REPEAT Q AM. VERIFY HOME MEDICATION, IV INVANZ. FEVER CONTROL, COMFORT CARE (4) Pneumonia Status: Acute Plan: RESP THERAPY, SUPPLEMENTAL O2. IV ATBX, JET NEBS. AM CXR (5) Fever Status: Acute (6) Cough Status: Acute (7) Alzheimers disease Status: Chronic (8) Dementia Status: Chronic (9) Diabetes mellitus Status: Chronic (10) Hypertension Status: Chronic (11) Hypothyroidism Status: Chronic (12) Acute renal failure Status: Acute (13) Hypotension Status: Acute Plan: HYDRATE, BP MONITORING
--- NOTE | 2018-06-12 13:44 | PCM.PROG ---
Progress Note - Progress Note for Day of Date of Exam: 06/12/18 - Subjective Subjective: 82 WF ER ADMISSION ON 06/05 WITH FEVER, UTI, INCREASE LETHARGY AND SUSPECTED ASPIRATION AFTER PROFUSE VOMITING ON TUESDAY PRIOR TO ADMISSION, THEN ONSET OF CHEST CONGESTION AND WHEEZING. PT FAMILY REVOKED COMFORT MEASURES BUT CURRENTLY WANTS PT TO RECEIVE TREATMENT FOR ACUTE INFECTION, HYPOTENSION. UC COLLECTED POSTIVE FOR ECOLI, BLOOD CULTURES POSITIVE FOR ECOLI, PT CURRENTLY ON INVANZ. PT HAS WBC 7.4 HGB 7.8 BUN55 CREAT 1.39. NO LONGER ON LEVOPHED, FAMILY ASKING FOR COMFORT MEASURES, DISCUSSED PLAN OF CARE WITH DR BUNN, REVIEWED LABS AND CXR WITH PT'DEEDEEYONYKARIN, FAMILY CONTINUES TO WANT HER "COMFORTABLE" ASKING TO CONTINUE WITH MORPHINE PRN. DNR CONTINUED. DIFFUSE RHONCHI ON EXAM, C URRENTLY RECEIVING ATROPINE GTTS FOR THICKENED SECRETIONS. - Past Medical Family Social History Past Med/Fam/Surg Hx: No changes since H&P Allergies: Allergies No Known Drug Allergies Allergy (Verified 01/12/18 10:23) - Review of Systems ROS: No change since H&P - Vital Signs and I&O's Vital Signs: Temperature 97.9 F Pulse Rate [Left Radial] 124 Pulse Rate 101 Respiratory Rate 26 Blood Pressure [Left Arm] 109/54 Blood Pressure [Right Arm] 99/55 Blood Pressure 110/54 O2 Sat by Pulse Oximetry 99 Intake and Output: Intake & Output 06/10/18 06/11/18 06/12/18 06/13/18 11:59 11:59 11:59 11:59 Intake Total 1562.5 / 1562.5 2502.5 / 2502.5 1665 / 1665 Output Total 1125 / 1125 1750 / 1750 1650 / 1650 Balance 437.5 / 437.5 752.5 / 752.5 - Physical Exam Oriented: Unable to test (NO VERBAL RESPONSES) Eyes: Redness (MILD REDNESS TO BILATERAL CONJUCTIVA) Ear: Normal Throat: Dry Respiratory: Diminished, Rhonchi Cardiovascular: Normal. negative: Murmur, Edema Auscultation: Bowel Sounds: Normal Tenderness: Normal, Other (PEG TUBE PRESENT) Skin: Decreased Turgur, Wound (CHRONIC BILATERAL HEEL WOUNDS) Musculoskeletal: Right, Left, Arm, Leg, Deformity, Motor Deficit, Sensory D eficit Mood Description: Calm Affect: Flat Speech Pattern: Aphasic - Laboratory and Diagnostics Result Diagrams: 06/12/18 04:58 06/12/18 04:58 Labs: 06/05/18 19:52 Blood Blood Culture - Final Escherichia Coli 06/05/18 19:46 Blood Blood Culture - Final Escherichia Coli 06/05/18 19:39 Urine,Catheterized Urine Culture - Final Escherichia Coli 06/06/18 02:55 Urine,Catheterized Urine Culture - Final Escherichia Coli Laboratory WBC 7.4 X10^3/uL (3.6-10.0) 06/12/18 04:58 RBC 2.22 X10^6/uL (3.5-5.4) L 06/12/18 04:58 Hgb 7.8 g/dL (12.0-16.0) L 06/12/18 04:58 Hct 22.6 % (36.0-47.0) L 06/12/18 04:58 MCV 101.6 fL (80.0-100.0) H 06/12/18 04:58 MCH 35.3 pg (27.0-34.0) H 06/12/18 04:58 MCHC 34.8 g/dL (33.0-35.0) 06/12/18 04:58 RDW 14.8 % (11.6-16.5) 06/12/18 04:58 Plt Count 127 X10^3/uL (150.0-450.0) L 06/12/18 04:58 Plt Count Comment Adequate (ADEQUATE) 06/12/18 04:58 MPV 9.3 fL (7.4-11.0) 06/12/18 04:58 Neut % (Auto) 74.3 % (42.0-75.0) 06/12/18 04:58 Lymph % (Auto) 14.8 % (21.0-51.0) L 06/12/18 04:58 [place] % (Auto) 8.2 % (0.0-13.0) 06/12/18 04:58 Eos % (Auto) 2.4 % (0.9-2.9) 06/12/18 04:58 Baso % (Auto) 0.3 % (0.2-1.0) 06/12/18 04:58 Neut # (Auto) 5.5 x10^3/uL (2.2-4.8) H 06/12/18 04:58 Lymph # (Auto) 1.1 X10^3/uL (1.3-2.9) L 06/12/18 04:58 [place] # (Auto) 0.6 x10^3/uL (0.3-0.8) 06/12/18 04:58 Eos # (Auto) 0.2 x10^3/uL (0.0-0.2) 06/12/18 04:58 Baso # (Auto) 0.0 X10^3/uL (0.0-0.1) 06/12/18 04:58 Absolute Nucleated RBC 0.0 /100WBC 06/12/18 04:58 Total Counted 100 06/10/18 07:35 Neutrophils % (Manual) 82 % (39-76) H 06/10/18 07:35 Band Neutrophils % 10 % (0-10) 06/10/18 07:35 Lymphocytes % (Manual) 7 % (13-43) L 06/10/18 07:35 Monocytes % (Manual) 1 % (4-9) L 06/10/18 07:35 Eosinophils % (Manual) 2 % (0-6) 06/08/18 06:24 Plt Morphology Comment Normal (NORMAL) 06/12/18 04:58 RBC Morphology Abnormal (NORMAL) A 06/12/18 04:58 Hypochromasia Slight A 06/12/18 04:58 Macrocytosis Slight A 06/10/18 07:35 Sodium 151 mmol/L (136-145) H* 06/12/18 04:58 Corrected Sodium TNP 06/12/18 04:58 Potassium 4.1 mmol/L (3.5-5.1) 06/12/18 04:58 Chloride 119 mmol/L (98-107) H* 06/12/18 04:58 Carbon Dioxide 23.6 mmol/L (21-32) 06/12/18 04:58 BUN 55 mg/dL (7-18) H 06/12/18 04:58 Creatinine 1.39 mg/dL (0.55-1.02) H 06/12/18 04:58 Est GFR (MDRD) Af Amer 47 (>60) L 06/12/18 04:58 Est GFR (MDRD) Non-Af 39 (>60) L 06/12/18 04:58 Glucose 79 mg/dL (65-99) 06/12/18 04:58 POC Glucose (mg/dL) 84 mg/dL (65-99) 06/12/18 10:49 Lactic Acid 2.6 mmol/L (0.4-2.0) H 06/05/18 19:46 Calcium 7.9 mg/dL (8.5-10.1) L 06/12/18 04:58 Corrected Calcium 10.0 mg/dL (8.5-10.1) 06/12/18 04:58 Total Bilirubin 0.30 mg/dL (0.2-1.0) 06/12/18 04:58 AST 17 Units/L (15-37) 06/12/18 04:58 ALT 24 Units/L (12-78) 06/12/18 04:58 Alkaline Phosphatase 178 Units/L (46-116) H 06/12/18 04:58 Creatine Kinase 141 Units/L (26-192) 06/05/18 19:46 CK-MB (CK-2) 2.2 ng/mL (0-4.0) 06/05/18 19:46 CK/CKMB % Calc 1.6 % (<4) 06/05/18 19:46 Troponin I 0.66 ng/mL (0-1.5) 06/06/18 15:36 C-Reactive Protein 284.20 mg/L (0-3.0) H 06/05/18 19:46 B-Natriuretic Peptide 1090 pg/mL (0-79) H* 06/06/18 15:36 Total Protein 5.3 g/dL (6.4-8.2) L 06/12/18 04:58 Albumin 1.4 g/dL (3.4-5.0) L 06/12/18 04:58 Globulin 3.9 g/dL (2.5-4.5) 06/12/18 04:58 Albumin/Globulin Ratio 0.4 Ratio (1.1-2.1) L 06/12/18 04:58 Specimen Type Catherized urine 06/06/18 02:57 Urine Color Yellow (YELLOW) 06/06/18 02:57 Urine Appearance Cloudy (CLEAR) 06/06/18 02:57 Urine pH 7.0 (5.0 - 8.0) 06/06/18 02:57 Ur Specific [place] 1.005 (1.000-1.030) 06/06/18 02:57 Urine Protein 3+ (NEGATIVE) 06/06/18 02:57 Urine Glucose (UA) Negative (NEGATIVE) 06/06/18 02:57 Urine Ketones Negative (NEGATIVE) 06/06/18 02:57 Urine Occult Blood 4+ (NEGATIVE) 06/06/18 02:57 Urine Nitrite Negative (NEGATIVE) 06/06/18 02:57 Urine Bilirubin Negative (NEGATIVE) 06/06/18 02:57 Urine Urobilinogen 1+ (NORMAL) 06/06/18 02:57 Ur Leukocyte Esterase 3+ (NEGATIVE) 06/06/18 02:57 Urine RBC 30-50 /HPF (NONE SEEN) 06/06/18 02:57 Urine WBC 30-50 /HPF (NONE SEEN) 06/06/18 02:57 Ur Squamous Epith Cells Few /HPF (NEGATIVE) 06/06/18 02:57 Amorphous Sediment 1+ /HPF (NEGATIVE) 06/06/18 02:57 Urine Bacteria Trace /HPF (NEGATIVE) 06/06/18 02:57 Urine Mucus Few /HPF (NEGATIVE) 06/05/18 19:39 Ur Culture Indicated? Yes/culture set up 06/06/18 02:57 - Plan (1) E coli bacteremia Status: Acute Plan: BLOOD AND URINE CULTURE ON ADMISSION, POSITIVE FOR ECOLI YI CATH WITH STRICT I & OS, BP MONITORING, RESP CONSULT. CXR Q AM AND REPEAT AM LABS. VERIFY HOME MEDICATION, IV INVANZ. FEVER CONTROL, COMFORT CARE (2) Sepsis due to Escherichia coli Status: Acute Plan: COMFORT CARE, CONTINUE IV ATBX AT THIS TIME. BP AND CARDIAC MONITORING, CONTINUE WITH AM LABS (3) UTI (urinary tract infection) Status: Acute Plan: ACUTE ON CHRONIC RENAL FAILURE. BLOOD AND URINE CULTURE ON ADMISSION, POSITIVE FOR ECOLI YI CATH WITH STRICT I & OS, BP MONITORING, RESP CONSULT. CXR ON ADMISSION IN ER AND REPEAT Q AM. VERIFY HOME MEDICATION, IV INVANZ. FEVER CONTROL, COMFORT CARE (4) Pneumonia Status: Acute Plan: RESP THERAPY, SUPPLEMENTAL O2. IV ATBX, JET NEBS. AM CXR (5) Fever Status: Acute (6) Cough Status: Acute (7) Alzheimers disease Status: Chronic (8) Dementia Status: Chronic (9) Diabetes mellitus Status: Chronic (10) Hypertension Status: Chronic (11) Hypothyroidism Status: Chronic (12) Acute renal failure Status: Acute (13) Hypotension Status: Acute Plan: HYDRATE, BP MONITORING
[2018-06-13] MEDS: MORPHINE SULFATE INJ 2 MG INJ IVP PRN ×4 (00:11→11:11)
[2018-06-13] MEDS: ATIVAN INJ 2 MG VIAL IVP PRN ×3 (03:17→11:53)
[2018-06-13] MEDS: BUTT CREAM (COMPOUND) TOP PRN (04:30)
[2018-06-13 07:43] LABS: BASOPHILS % (AUTO) 0.5 % (0.2-1.0); EOSINOPHILS # (AUTO) 0.2 x10^3/uL (0.0-0.2); EOSINOPHILS % (AUTO) 2.5 % (0.9-2.9); HEMATOCRIT 24.6 % (36.0-47.0); HEMOGLOBIN 8.4 g/dL (12.0-16.0); LYMPHOCYTES % (AUTO) 11.3 % (21.0-51.0); MEAN CORPUSCULAR HEMOGLOBIN 35.1 pg (27.0-34.0); MEAN CORPUSCULAR HGB CONC 34.3 g/dL (33.0-35.0); MEAN CORPUSCULAR VOLUME 102.5 fL (80.0-100.0); MEAN PLATELET VOLUME 9.3 fL (7.4-11.0); MONOCYTES # (AUTO) 0.5 x10^3/uL (0.3-0.8); MONOCYTES % (AUTO) 5.7 % (0.0-13.0); NEUTROPHILS # (AUTO) 6.8 x10^3/uL (2.2-4.8); PLATELET COUNT 189 X10^3/uL (150.0-450.0); RED CELL DISTRIBUTION WIDTH 14.6 % (11.6-16.5); WHITE BLOOD COUNT 8.5 X10^3/uL (3.6-10.0)
[2018-06-13 07:53] LABS: ALANINE AMINOTRANSFERASE 23 Units/L (12-78); ALBUMIN 1.5 g/dL (3.4-5.0); ALKALINE PHOSPHATASE 176 Units/L (46-116); ASPARTATE AMINO TRANSFERASE 27 Units/L (15-37); BLOOD UREA NITROGEN 44 mg/dL (7-18); CALCIUM 8.2 mg/dL (8.5-10.1); CARBON DIOXIDE 26.2 mmol/L (21-32); COR CA(FOR HYPOALB) 10.2 mg/dL (8.5-10.1); CREATININE 1.27 mg/dL (0.55-1.02); eGFR NON BLACK RACES 43 (>60)
[2018-06-13 07:55] LABS: CHLORIDE 120 mmol/L (98-107); SODIUM 154 mmol/L (136-145)
[2018-06-13] MEDS: INVANZ INJ 1 GM VIAL 0.5 GM in NS 100 ML IV 100 ML IV SCH (09:33)
[2018-06-13] MEDS ORDERED: DULCOLAX SUPPOSITORY 10 MG RECTAL ONE (10:10)
[2018-06-13] MEDS: ISOPTO ATROPINE SL PRN (11:50)
[2018-06-13 14:11] VITALS: BP 124/60
--- NOTE | 2018-06-28 13:04 | PCM.DCPLAN ---
Discharge Summary - Admission Date Date of Admission: 06/05/18 - Discharge Date Discharge Date: 06/13/18 - Admission Diagnoses (1) Acute renal failure Status: Acute (2) E coli bacteremia Status: Acute (3) Hypotension Status: Acute (4) UTI (urinary tract infection) Status: Acute (5) Dementia Status: Chronic (6) Diabetes mellitus Status: Chronic (7) Hypertension Status: Chronic (8) Hypothyroidism Status: Chronic (9) Osteoarthritis Status: Chronic (10) Parkinson disease Status: Chronic (11) Peripheral vascular disease Status: Chronic (12) Pneumonia Status: Acute - Discharge Diagnoses Discharge Diagnosis: Same as above - Discharge Medications Discharge Medications: Home Medication List morphine concentrate 0.25 ml SUBLINGUAL Q2H PRN 06/05/18 [History] phenytoin [Dilantin-125] 6 ml G-TUBE BID 06/05/18 [History] Prescriptions: - Hospital Course Vital Signs: Temperature 97.3 F Pulse Rate [Left Radial] 124 Pulse Rate 286 Respiratory Rate 31 Blood Pressure [Left Arm] 109/54 Blood Pressure [Right Arm] 99/55 Blood Pressure 124/60 O2 Sat by Pulse Oximetry 83 Latest Lab Results: Laboratory Last Values WBC 8.5 X10^3/uL (3.6-10.0) 06/13/18 07:30 RBC 2.40 X10^6/uL (3.5-5.4) L 06/13/18 07:30 Hgb 8.4 g/dL (12.0-16.0) L 06/13/18 07:30 Hct 24.6 % (36.0-47.0) L 06/13/18 07:30 MCV 102.5 fL (80.0-100.0) H 06/13/18 07:30 MCH 35.1 pg (27.0-34.0) H 06/13/18 07:30 MCHC 34.3 g/dL (33.0-35.0) 06/13/18 07:30 RDW 14.6 % (11.6-16.5) 06/13/18 07:30 Plt Count 189 X10^3/uL (150.0-450.0) 06/13/18 07:30 Plt Count Comment Adequate (ADEQUATE) 06/12/18 04:58 MPV 9.3 fL (7.4-11.0) 06/13/18 07:30 Neut % (Auto) 80.0 % (42.0-75.0) H 06/13/18 07:30 Lymph % (Auto) 11.3 % (21.0-51.0) L 06/13/18 07:30 [place] % (Auto) 5.7 % (0.0-13.0) 06/13/18 07:30 Eos % (Auto) 2.5 % (0.9-2.9) 06/13/18 07:30 Baso % (Auto) 0.5 % (0.2-1.0) 06/13/18 07:30 Neut # (Auto) 6.8 x10^3/uL (2.2-4.8) H 06/13/18 07:30 Lymph # (Auto) 1.0 X10^3/uL (1.3-2.9) L 06/13/18 07:30 [place] # (Auto) 0.5 x10^3/uL (0.3-0.8) 06/13/18 07:30 Eos # (Auto) 0.2 x10^3/uL (0.0-0.2) 06/13/18 07:30 Baso # (Auto) 0.0 X10^3/uL (0.0-0.1) 06/13/18 07:30 Absolute Nucleated RBC 0.0 /100WBC 06/13/18 07:30 Total Counted 100 06/10/18 07:35 Neutrophils % (Manual) 82 % (39-76) H 06/10/18 07:35 Band Neutrophils % 10 % (0-10) 06/10/18 07:35 Lymphocytes % (Manual) 7 % (13-43) L 06/10/18 07:35 Monocytes % (Manual) 1 % (4-9) L 06/10/18 07:35 Eosinophils % (Manual) 2 % (0-6) 06/08/18 06:24 Plt Morphology Comment Normal (NORMAL) 06/12/18 04:58 RBC Morphology Abnormal (NORMAL) A 06/12/18 04:58 Hypochromasia Slight A 06/12/18 04:58 Macrocytosis Slight A 06/10/18 07:35 Sodium 154 mmol/L (136-145) H* 06/13/18 07:30 Corrected Sodium TNP 06/13/18 07:30 Potassium 4.4 mmol/L (3.5-5.1) 06/13/18 07:30 Chloride 120 mmol/L (98-107) H* 06/13/18 07:30 Carbon Dioxide 26.2 mmol/L (21-32) 06/13/18 07:30 BUN 44 mg/dL (7-18) H 06/13/18 07:30 Creatinine 1.27 mg/dL (0.55-1.02) H 06/13/18 07:30 Est GFR (MDRD) Af Amer 52 (>60) L 06/13/18 07:30 Est GFR (MDRD) Non-Af 43 (>60) L 06/13/18 07:30 Glucose 86 mg/dL (65-99) 06/13/18 07:30 POC Glucose (mg/dL) 76 mg/dL (65-99) 06/13/18 10:52 Lactic Acid 2.6 mmol/L (0.4-2.0) H 06/05/18 19:46 Calcium 8.2 mg/dL (8.5-10.1) L 06/13/18 07:30 Corrected Calcium 10.2 mg/dL (8.5-10.1) H 06/13/18 07:30 Total Bilirubin 0.30 mg/dL (0.2-1.0) 06/13/18 07:30 AST 27 Units/L (15-37) 06/13/18 07:30 ALT 23 Units/L (12-78) 06/13/18 07:30 Alkaline Phosphatase 176 Units/L (46-116) H 06/13/18 07:30 Creatine Kinase 141 Units/L (26-192) 06/05/18 19:46 CK-MB (CK-2) 2.2 ng/mL (0-4.0) 06/05/18 19:46 CK/CKMB % Calc 1.6 % (<4) 06/05/18 19:46 Troponin I 0.66 ng/mL (0-1.5) 06/06/18 15:36 C-Reactive Protein 284.20 mg/L (0-3.0) H 06/05/18 19:46 B-Natriuretic Peptide 1090 pg/mL (0-79) H* 06/06/18 15:36 Total Protein 6.0 g/dL (6.4-8.2) L 06/13/18 07:30 Albumin 1.5 g/dL (3.4-5.0) L 06/13/18 07:30 Globulin 4.5 g/dL (2.5-4.5) 06/13/18 07:30 Albumin/Globulin Ratio 0.3 Ratio (1.1-2.1) L 06/13/18 07:30 Specimen Type Catherized urine 06/06/18 02:57 Urine Color Yellow (YELLOW) 06/06/18 02:57 Urine Appearance Cloudy (CLEAR) 06/06/18 02:57 Urine pH 7.0 (5.0 - 8.0) 06/06/18 02:57 Ur Specific [place] 1.005 (1.000-1.030) 06/06/18 02:57 Urine Protein 3+ (NEGATIVE) 06/06/18 02:57 Urine Glucose (UA) Negative (NEGATIVE) 06/06/18 02:57 Urine Ketones Negative (NEGATIVE) 06/06/18 02:57 Urine Occult Blood 4+ (NEGATIVE) 06/06/18 02:57 Urine Nitrite Negative (NEGATIVE) 06/06/18 02:57 Urine Bilirubin Negative (NEGATIVE) 06/06/18 02:57 Urine Urobilinogen 1+ (NORMAL) 06/06/18 02:57 Ur Leukocyte Esterase 3+ (NEGATIVE) 06/06/18 02:57 Urine RBC 30-50 /HPF (NONE SEEN) 06/06/18 02:57 Urine WBC 30-50 /HPF (NONE SEEN) 06/06/18 02:57 Ur Squamous Epith Cells Few /HPF (NEGATIVE) 06/06/18 02:57 Amorphous Sediment 1+ /HPF (NEGATIVE) 06/06/18 02:57 Urine Bacteria Trace /HPF (NEGATIVE) 06/06/18 02:57 Urine Mucus Few /HPF (NEGATIVE) 06/05/18 19:39 Ur Culture Indicated? Yes/culture set up 06/06/18 02:57 Hospital Course: 82 WF ER ADMISSION ON 06/05 WITH FEVER, UTI, INCREASE LETHARGY AND SUSPECTED ASPIRATION AFTER PROFUSE VOMITING ON TUESDAY PRIOR TO ADMISSION, THEN ONSET OF CHEST CONGESTION AND WHEEZING. PT FAMILY PREVIOUSLY REVOKED COMFORT MEASURES AND WANTED PT TO RECEIVE TREATMENT FOR ACUTE INFECTION, HYPOTENSION. UC COLLECTED POSTIVE FOR ECOLI, BLOOD CULTURES POSITIVE FOR ECOLI, PT ON INVANZ. LEVOPHED WAS INITIATED AND SUBSEQUENTLY DISCONTINUED. FAMILY ASKED FOR COMFORT MEASURES AND WISH TO WANT HER "COMFORTABLE" ASKING TO CONTINUE WITH MORPHINE PRN. DNR CONTINUED. SUBSEQUENTLY PATIENT DID SUCCUMB TO DISEASE PROCESS. SEE RECORD. - Discharge Plan Disposition: 20 Condition: Stable - Follow ups/Referrals Follow ups/Referrals: PHAM BUNN [Primary Care Provider] - 1 WEEK - Instructions Additional Instructions: iv invanz iv x 14 days h20 via peg tube 250cc q 4 hr 5-6 times per day for treatment of hypernatremia, repeat bmp today 1600 cmp q am until na normal 135-145 port a cath care, resume comfort care, morphine drops prn as ordered supportive care
== END 2018-06-13 15:00 | disposition expired | DRG 871 ==
LOC: ER 18:52 → MED/SURG 21:50 → ICU 06-06 14:33
PROVIDERS: ADMIT Internal Medicine; ATTEND Internal Medicine
DX: F02.80 Dementia in other diseases classified elsewhere, unspecified severity, without behavioral disturbance, psychotic disturbance, mood disturbance, and anxiety; Z66 Do not resuscitate; N17.9 Acute kidney failure, unspecified; E11.9 Type 2 diabetes mellitus without complications; R65.20 Severe sepsis without septic shock; Z93.1 Gastrostomy status; E03.9 Hypothyroidism, unspecified; Z79.899 Other long term (current) drug therapy; I12.9 Hypertensive chronic kidney disease with stage 1 through stage 4 chronic kidney disease, or unspecified chronic kidney disease; G30.9 Alzheimer's disease, unspecified; A41.51 Sepsis due to Escherichia coli [E. coli]; N18.9 Chronic kidney disease, unspecified; N39.0 Urinary tract infection, site not specified; R06.02 Shortness of breath; J69.0 Pneumonitis due to inhalation of food and vomit
CPT/HCPCS: 36415; 51701; 71010; 71045; 80048; 80053; 80185; 81001; 82550; 82553; 83605; 83880; 84484; 85025; 86140; 87040; 87077; 87086; 87088; 87186; 94640; 96365; 96367; 96374; 96375; 99231; 99283; 99284; A4222; J0696; J1335; J2060; J2270; J3260; J7030; J7040; J7050; J7060